=== PATIENT | female | born 1985 ===

== ENCOUNTER 2016-10-22 16:53 | Emergency (ER) | payer MEDICAID ==
[2016-10-22 17:47] LABS: RBC URINE 17 /hpf (0-3); URINE BACTERIA FEW (<OCC); URINE BILIRUBIN NEGATIVE (NEGATIVE); URINE BLOOD NEGATIVE (NEGATIVE); URINE COLOR Yellow (YELLOW); URINE GLUCOSE (UA) NORMAL (Normal); URINE KETONE TRACE mg/dL (NEGATIVE); URINE LEUKOCYTE ESTERASE 2+ Leu/uL (Negative); URINE PROTEIN 1+ mg/dL (NEGATIVE); URINE UROBILINOGEN NORMAL mg/dL (0.2-1.0); WBC URINE 99 /hpf (0-5)
[2016-10-22 18:16] VITALS: BP 106/60; PULSE 74; RESP 18; TEMP 97.9; O2SAT 99
--- NOTE | 2016-10-22 18:34 | C.PDOC ---
History Of Present Illness The patient, a 31 y/o female whose PMHx includes multiple UTIs, presents to the ED for evaluation of dysuria as well as increased urinary frequency and urgency which began around 3 days ago. Patient requests Rx for diflucan, stating she usually gets yeast infections after antibiotics use. Patient denies nausea, vomiting, vaginal discharge/bleeding, or any recent antibiotic use. Chief Complaint (Nursing): Female Genitourinary History Per: Patient History/Exam Limitations: no limitations Onset/Duration Of Symptoms: Days (3) Current Symptoms Are (Timing): Still Present Quality Of Discomfort: "Pain" Associated Symptoms: Urinary Symptoms (dysuria, increased urinary frequency and urgency ). denies: Nausea, Vomiting Additional History Per: Patient Abnormal Vaginal Bleeding: No Past Medical History Reviewed: Historical Data, Nursing Documentation, Vital Signs Vital Signs: Last Vital Signs Temp 97.9 F 10/22/16 18:16 Pulse 74 10/22/16 18:16 Resp 18 10/22/16 18:16 BP 106/60 10/22/16 18:16 Pulse Ox 99 10/22/16 18:36 - Medical History PMH: No Chronic Diseases - [facility] Procedures TETANUS TOXOID ADMINIST (12/22/12) Family History: States: Unknown Family Hx - Social History Hx Tobacco Use: No Hx Alcohol Use: No Hx Substance Use: No - Immunization History Hx Tetanus Toxoid Vaccination: No Hx Influenza Vaccination: No Hx Pneumococcal Vaccination: No Review Of Systems Except As Marked, All Systems Reviewed And Found Negative. Gastrointestinal: Negative for: Nausea, Vomiting Genitourinary: Positive for: Dysuria, Frequency, Other (+urinary urgency ). Negative for: Vaginal Discharge, Vaginal Bleeding Physical Exam - Physical Exam Appears: Non-toxic, No Acute Distress Skin: Normal Color, Warm, Dry Head: Atraumatic, Normacephalic Eye(s): bilateral: Normal Inspection Oral Mucosa: Moist Neck: Normal ROM, Supple Chest: Symmetrical, No Deformity, No Tenderness Cardiovascular: Rhythm Regular, No Murmur Respiratory: Normal Breath Sounds, No Rales, No Rhonchi, No Wheezing Gastrointestinal/Abdominal: Soft, No Tenderness, No Guarding, No Rebound Back: Normal Inspection, No Vertebral Tenderness, No Paraspinal Tenderness Extremity: Normal ROM, Capillary Refill (less than 2 seconds ) Neurological/Psych: Oriented x3, Normal Speech, Normal Cognition Gait: Steady ED Course And Treatment O2 Sat by Pulse Oximetry: 99 (on RA) Pulse Ox Interpretation: Normal Progress Note: Labs ordered and reviewed. Patient received Cipro PO and Toradol IM. Disposition - Disposition Referrals: Wai Coronado, [Non-Staff] - Disposition: HOME/ ROUTINE Disposition Time: 18:00 Condition: GOOD Additional Instructions: Thank you for letting us take care of you today. Your provider was Dr. Alejandra. You were treated for a urinary tract infection. The emergency medical care you received today was directed at your acute symptoms. If you were prescribed any medication, please fill it and take as directed. It may take several days for your symptoms to resolve. Return to the Emergency Department if your symptoms worsen, do not improve, or if you have any other problems. Please contact your doctor or call one of the physicians/clinics you have been referred to that are listed on the Patient Visit Information form that is included in your discharge packet. Bring any paperwork you were given at discharge with you along with any medications you are taking to your follow up visit. Our treatment cannot replace ongoing medical care by a primary care provider (PCP) outside of the emergency department. Thank you for allowing the [facility] team to be part of your care today. Follow up with your primary doctor this week for re-evaluation. Prescriptions: Ciprofloxacin [Cipro] 500 mg PO BID #20 tab Fluconazole [Diflucan] 150 mg PO ONCE #1 tab Ibuprofen [Motrin] 600 mg PO Q6 PRN #20 tab PRN Reason: Pain, Moderate (4-7) Phenazopyridine [Phenazopyridine HCl] 200 mg PO TID #6 tab Instructions: Urinary Tract Infection in Women (ED) - Clinical Impression Clinical Impression: Acute urinary tract infection - Scribe Statement The provider has reviewed the documentation as recorded by the Scribe (Emelina Ramires) Provider Attestation: All medical record entries made by the Scribe were at my direction and personally dictated by me. I have reviewed the chart and agree that the record accurately reflects my personal performance of the history, physical exam, medical decision making, and the department course for this patient. I have also personally directed, reviewed, and agree with the discharge instructions and disposition.
== END 2016-10-22 18:23 | disposition home or self-care (01) ==
LOC: C.ER 16:53
DX: N39.0 Urinary tract infection, site not specified (principal)
CPT/HCPCS: 81001; 84703; 96372; 99284; J1885

== ENCOUNTER 2017-01-25 10:45 | Emergency (ER) | payer MEDICAID ==
[2017-01-25 10:51] VITALS: RESP 20; TEMP 98.5; O2SAT 100
[2017-01-25 12:07] LABS: BASO % 0.4 % (0.0-2.0); EOS % 0.1 % (0.0-4.0); HEMOGLOBIN 12.7 g/dL (11.0-16.0); LYMPH % 11.9 % (20.0-40.0); MEAN CORPUSCULAR HEMOGLOBIN 31.7 pg (27.0-31.0); MEAN CORPUSCULAR HGB CONC 33.4 g/dL (33.0-37.0); MEAN PLATELET VOLUME 9.5 fL (7.2-11.7); MONO # 0.6 K/uL (0.0-0.8); MONO % 7.1 % (0.0-10.0); NEUT # 6.9 K/uL (1.8-7.0); NEUT % 80.5 % (50.0-75.0); RBC 4.02 Mil/uL (3.80-5.20); RED CELL DISTRIBUTION WIDTH 12.1 % (11.5-14.5); WHITE BLOOD COUNT 8.6 K/uL (4.8-10.8)
[2017-01-25 12:18] LABS: ALB/GLOB RATIO 1.1 (1.0-2.1); ALT/SGPT 21 U/L (9-52); AST/SGOT 34 U/L (14-36); BLOOD UREA NITROGEN 9 mg/dL (7-17); GFR AFRICAN-AMERICAN > 60; GFR NON-AFRICAN AMERICAN > 60
[2017-01-25 12:19] LABS: CALCIUM 8.5 mg/dl (8.6-10.4)
[2017-01-25] MEDS ORDERED: Sodium Chloride 0.9% 1,000 ML IV ONE (13:09)
[2017-01-25] MEDS ORDERED: Sodium Chloride 0.9% 1,000 ML ONE (13:52)
[2017-01-25 14:12] LABS: SQUAMOUS EPITHIAL 12 /hpf (0-5); URINE BACTERIA FEW (<OCC); URINE BILIRUBIN NEGATIVE (NEGATIVE); URINE BLOOD 2+ (NEGATIVE); URINE CLARITY Hazy (Clear); URINE COLOR Yellow (YELLOW); URINE GLUCOSE (UA) NORMAL (Normal); URINE LEUKOCYTE ESTERASE NEG Leu/uL (Negative); URINE NITRATE NEGATIVE (NEGATIVE); URINE PROTEIN 1+ mg/dL (NEGATIVE); URINE UROBILINOGEN NORMAL mg/dL (0.2-1.0)
--- NOTE | 2017-01-25 14:19 | C.PDOC ---
History Of Present Illness 31-year-old female, presents to the emergency department with complaints of two- day duration of non-bloody diarrhea, that is associated with nausea and abdominal cramping. patient reports that she was unable to tolerate fluids yesterday and was feeling generalized weakness, prompting her visit. Notes associated questionable fever and chills. Time Seen by Provider: 01/25/17 12:09 Chief Complaint (Nursing): Fever History Per: Patient History/Exam Limitations: no limitations Onset/Duration Of Symptoms: Days Current Symptoms Are (Timing): Still Present Severity: Moderate Past Medical History Reviewed: Historical Data, Nursing Documentation, Vital Signs Vital Signs: Last Vital Signs Temp 98.5 F 01/25/17 14:50 Pulse 90 01/25/17 14:50 Resp 20 01/25/17 14:50 BP 103/67 01/25/17 14:50 Pulse Ox 100 01/25/17 14:51 - [facility] Procedures TETANUS TOXOID ADMINIST (12/22/12) Family History: States: No Known Family Hx - Social History Hx Tobacco Use: No Hx Alcohol Use: Yes Hx Substance Use: No - Immunization History Hx Tetanus Toxoid Vaccination: No Hx Influenza Vaccination: No Hx Pneumococcal Vaccination: No Review Of Systems Except As Marked, All Systems Reviewed And Found Negative. Constitutional: Positive for: Fever, Chills Cardiovascular: Negative for: Chest Pain Respiratory: Negative for: Shortness of Breath Gastrointestinal: Positive for: Diarrhea. Negative for: Nausea, Vomiting, Hematochezia, Hematemesis Musculoskeletal: Negative for: Back Pain Physical Exam - Physical Exam Appears: Non-toxic, No Acute Distress Skin: Warm, Dry, No Rash Head: Atraumatic, Normacephalic Eye(s): bilateral: Normal Inspection, PERRL, EOMI Nose: Normal Oral Mucosa: Moist Lips: Normal Appearing Neck: Normal ROM Cardiovascular: Rhythm Regular, No Murmur Respiratory: Normal Breath Sounds, No Accessory Muscle Use Gastrointestinal/Abdominal: Soft, No Tenderness Extremity: Normal ROM Neurological/Psych: Oriented x3, Normal Speech ED Course And Treatment - Laboratory Results Result Diagrams: 01/25/17 12:02 01/25/17 12:02 O2 Sat by Pulse Oximetry: 100 (on RA) Pulse Ox Interpretation: Normal Medical Decision Making Medical Decision Making: On re-exam, the patient reports improvement of symptoms. Ambulatory in the ED with steady gait. Lungs are CTA, heart is RRR, abdomen is soft, non-tender and tolerating PO well. Follow up with the medical doctor within 1-2 days. Return if worsened. Disposition - Disposition Referrals: Eve Lind MD [Non-Staff] - Disposition: HOME/ ROUTINE Disposition Time: 14:16 Condition: GOOD Additional Instructions: Follow up with the medical doctor within 1-2 days. Return if worsened. Prescriptions: Ibuprofen [Motrin] 1 tab PO TID PRN #30 tab PRN Reason: Pain Ondansetron ODT [Zofran ODT] 1 odt PO BID PRN #6 odt PRN Reason: Nausea/Vomiting Instructions: Acute Diarrhea (ED) Forms: Work Excuse - Clinical Impression Clinical Impression: Diarrhea - PA / RECREATIONAL ASSISTANT / Resident Statement MD/DO has reviewed & agrees with the documentation as recorded. - Scribe Statement The provider has reviewed the documentation as recorded by the Scribe (Bairon De Jesus) All medical record entries made by the Scribe were at my direction and personally dictated by me. I have reviewed the chart and agree that the record accurately reflects my personal performance of the history, physical exam, medical decision making, and the department course for this patient. I have also personally directed, reviewed, and agree with the discharge instructions and disposition.
[2017-01-25 14:50] VITALS: BP 103/67; PULSE 90
== END 2017-01-25 14:50 | disposition home or self-care (01) ==
LOC: C.ER 10:45
DX: R19.7 Diarrhea, unspecified (principal)
CPT/HCPCS: 80053; 81001; 85025; 96374; 96375; 99285; J1885; J2405; J7040

== ENCOUNTER 2017-01-30 18:29 | Emergency (ER) | payer MEDICAID ==
[2017-01-30 18:51] VITALS: BMI 19.4
[2017-01-30 18:53] VITALS: TEMP 97.3
[2017-01-30 20:08] LABS: SQUAMOUS EPITHIAL 12 /hpf (0-5); URINE BACTERIA FEW (<OCC); URINE BILIRUBIN NEGATIVE (NEGATIVE); URINE BLOOD 1+ (NEGATIVE); URINE CLARITY Hazy (Clear); URINE COLOR Yellow (YELLOW); URINE GLUCOSE (UA) NORMAL (Normal); URINE LEUKOCYTE ESTERASE 3+ Leu/uL (Negative); URINE NITRATE NEGATIVE (NEGATIVE); URINE PROTEIN 1+ mg/dL (NEGATIVE); URINE UROBILINOGEN NORMAL mg/dL (0.2-1.0)
[2017-01-30 20:09] LABS: HCG,QUALITATIVE URINE NEGATIVE (NEGATIVE)
--- NOTE | 2017-01-30 20:10 | C.PDOC ---
History Of Present Illness 31 y/o female hx of frequent UTIs presents to the ED with complaints of dysuria , frequency, and hesitancy. Last UTI was last month. Denies abdominal pain, back pain, fever, vomiting or any other complaints. Time Seen by Provider: 01/30/17 19:30 Chief Complaint (Nursing): Female Genitourinary History Per: Patient History/Exam Limitations: no limitations Onset/Duration Of Symptoms: Days Current Symptoms Are (Timing): Still Present Severity: Moderate Recent travel outside of the [place]: No Past Medical History Reviewed: Historical Data, Nursing Documentation, Vital Signs Vital Signs: Last Vital Signs Temp 97.3 F L 01/30/17 18:52 Pulse 86 01/30/17 18:52 Resp 17 01/30/17 18:52 BP 100/63 01/30/17 18:52 Pulse Ox 100 01/30/17 20:45 - [facility] Procedures TETANUS TOXOID ADMINIST (12/22/12) Family History: States: Unknown Family Hx - Social History Hx Tobacco Use: No Hx Alcohol Use: Yes Hx Substance Use: No - Immunization History Hx Tetanus Toxoid Vaccination: No Hx Influenza Vaccination: No Hx Pneumococcal Vaccination: No Review Of Systems Except As Marked, All Systems Reviewed And Found Negative. Constitutional: Negative for: Fever, Chills Gastrointestinal: Negative for: Vomiting, Abdominal Pain Genitourinary: Positive for: Dysuria, Frequency, Other (hesitancy) Musculoskeletal: Negative for: Back Pain Physical Exam - Physical Exam Appears: Non-toxic, No Acute Distress Skin: Warm, Dry, No Rash Head: Atraumatic, Normacephalic Neck: Normal, Normal ROM, Supple Chest: Symmetrical Cardiovascular: Rhythm Regular, No Murmur Respiratory: Normal Breath Sounds, No Rales, No Rhonchi, No Wheezing Gastrointestinal/Abdominal: Normal Exam, Soft, No Tenderness Back: No CVA Tenderness Neurological/Psych: Oriented x3, Normal Speech ED Course And Treatment O2 Sat by Pulse Oximetry: 100 (room air) Pulse Ox Interpretation: Normal Progress Note: Plan: UA, pyridium. UA reviewed - indicates UTI, macrobid PO given and pt will be follow up with PCP Reevaluation Time: 20:42 Reassessment Condition: Improved Disposition Counseled Patient/Family Regarding: Diagnosis - Disposition Disposition: HOME/ ROUTINE Disposition Time: 20:42 Condition: STABLE Additional Instructions: INcrease PO fluids Take meds as prescribed Return to ER if worse Prescriptions: Nitrofurantoin Macrocrystals [Macrobid] 1 cap PO BID #14 cap Phenazopyridine HCl [Pyridium] 200 mg PO TID #5 tab Instructions: Urinary Tract Infection in Women (ED) - Clinical Impression Clinical Impression: UTI (urinary tract infection) - PA / RESOURCE AGENT / Resident Statement MD/DO has reviewed & agrees with the documentation as recorded. - Scribe Statement The provider has reviewed the documentation as recorded by the Scribyasmine Capellan All medical record entries made by the Kristen were at my direction and personally dictated by me. I have reviewed the chart and agree that the record accurately reflects my personal performance of the history, physical exam, medical decision making, and the department course for this patient. I have also personally directed, reviewed, and agree with the discharge instructions and disposition.
[2017-01-30 21:03] VITALS: BP 124/75; PULSE 78; RESP 18
[2017-01-31 02:27] VITALS: O2SAT 100
== END 2017-01-30 21:03 | disposition home or self-care (01) ==
LOC: C.ER 18:29
DX: N39.0 Urinary tract infection, site not specified (principal)

== ENCOUNTER 2017-02-08 22:26 | Emergency (ER) | payer MEDICAID ==
[2017-02-08 22:26] VITALS: BMI 19.4
[2017-02-08 22:41] VITALS: BP 115/77; PULSE 105; RESP 16; TEMP 98.8; O2SAT 97
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
== END 2017-02-09 00:04 | disposition home or self-care (01) ==
LOC: C.ER 22:26
DX: S50.02XA Contusion of left elbow, initial encounter (principal); S50.11XA Contusion of right forearm, initial encounter; S80.12XA Contusion of left lower leg, initial encounter; Y04.2XXA Assault by strike against or bumped into by another person, initial encounter; Y92.009 Unspecified place in unspecified non-institutional (private) residence as the place of occurrence of the external cause

== ENCOUNTER 2017-03-22 13:09 | Emergency (ER) | payer OTHER, MEDICAID ==
[2017-03-22 13:10] VITALS: BMI 19.4
[2017-03-22 13:25] VITALS: BP 100/64; PULSE 80; RESP 18; TEMP 98; O2SAT 100
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
== END 2017-03-22 13:56 | disposition home or self-care (01) ==
LOC: C.ER 13:09
DX: R51 Headache (principal)

== ENCOUNTER 2017-04-07 12:41 | Emergency (ER) | payer MEDICAID, OTHER ==
[2017-04-07 12:42] VITALS: BMI 19.4
[2017-04-07] MEDS ORDERED: Sodium Chloride 0.9% 1,000 ML IV ONE (13:33)
[2017-04-07 14:06] LABS: BASO % 0.5 % (0.0-2.0); EOS # 0.1 K/uL (0.0-0.7); EOS % 1.1 % (0.0-4.0); HEMATOCRIT 35.4 % (34.0-47.0); LYMPH # 2.2 K/uL (1.0-4.3); MEAN CELL VOLUME 95.6 fL (81.0-99.0); MEAN CORPUSCULAR HEMOGLOBIN 32.9 pg (27.0-31.0); MEAN CORPUSCULAR HGB CONC 34.4 g/dL (33.0-37.0); MEAN PLATELET VOLUME 8.3 fL (7.2-11.7); MONO # 0.6 K/uL (0.0-0.8); MONO % 8.1 % (0.0-10.0); RED CELL DISTRIBUTION WIDTH 11.9 % (11.5-14.5); WHITE BLOOD COUNT 7.9 K/uL (4.8-10.8)
[2017-04-07 14:17] LABS: ALB/GLOB RATIO 1.3 (1.0-2.1); ALKALINE PHOSPHATASE 47 U/L (38-126); ALT/SGPT 31 U/L (9-52); AST/SGOT 20 U/L (14-36); BILIRUBIN,TOTAL 0.5 mg/dL (0.2-1.3); BLOOD UREA NITROGEN 12 mg/dL (7-17); CALCIUM 9.3 mg/dl (8.6-10.4); CARBON DIOXIDE 25 mmol/L (22-30); CHLORIDE 103 mmol/L (98-107); GFR AFRICAN-AMERICAN > 60; GLUCOSE,RANDOM 73 mg/dL (65-105); SODIUM 141 mmol/L (132-148); TOTAL PROTEIN 7.2 g/dL (6.3-8.3)
--- NOTE | 2017-04-07 14:31 | C.PDOC ---
History Of Present Illness 32 y/o female presents to ED with complaints of vaginal spotting noticed earlier today. Patient states she wiped herself and noticed blood on tissue. At ED patient is not actively bleeding. Patient states she had cramping and [id number] pain but resolved with associated clear and white discharge. Patient denies fever, chills, back pain, urinary symptoms or any other complaints at this time. Time Seen by Provider: 04/07/17 13:32 Chief Complaint (Nursing): Female Genitourinary History Per: Patient History/Exam Limitations: no limitations Onset/Duration Of Symptoms: Days Current Symptoms Are (Timing): Still Present Past Medical History Reviewed: Historical Data, Nursing Documentation, Vital Signs Vital Signs: Last Vital Signs Temp 98.2 F 04/07/17 16:29 Pulse 86 04/07/17 16:29 Resp 20 04/07/17 16:29 BP 141/83 04/07/17 16:29 Pulse Ox 100 04/07/17 18:59 - [facility] Procedures TETANUS TOXOID ADMINIST (12/22/12) Family History: States: Unknown Family Hx - Social History Hx Tobacco Use: No Hx Alcohol Use: No Hx Substance Use: No - Immunization History Hx Tetanus Toxoid Vaccination: Yes Hx Influenza Vaccination: Yes Hx Pneumococcal Vaccination: No Review Of Systems Except As Marked, All Systems Reviewed And Found Negative. Genitourinary: Positive for: Vaginal Bleeding Physical Exam - Physical Exam Appears: Non-toxic, No Acute Distress Skin: Normal Color, Warm, Dry, No Rash Head: Atraumatic, Normacephalic Eye(s): bilateral: Normal Inspection Oral Mucosa: Moist Neck: Normal ROM, Supple Chest: Symmetrical Cardiovascular: Rhythm Regular, No Murmur Respiratory: Normal Breath Sounds, No Rales, No Rhonchi, No Wheezing Gastrointestinal/Abdominal: Tenderness (suprapubic), No Guarding, No Rebound Neurological/Psych: Oriented x3 ED Course And Treatment - Laboratory Results Result Diagrams: 04/07/17 14:02 04/07/17 14:02 O2 Sat by Pulse Oximetry: 100 (RA) Pulse Ox Interpretation: Normal Medical Decision Making Medical Decision Making: r/o ectopic vs micarriage Plan: * UA * Blood work * US abdomen * * case discussed in detail with dr smith. requests outpt f/u with pts obgyn. discussed results in detail with patient. agrees to see obgyn as outpt. return precautions advised. Disposition - Disposition Referrals: Martin Smith MD [Staff Provider] - Disposition: HOME/ ROUTINE Disposition Time: 04:00 Condition: STABLE Additional Instructions: please follow up with your doctor/barge hand. return to er with worsening symptoms or concerns. Instructions: Spontaneous Miscarriage (ED) Forms: [employer] (Dutch) - Clinical Impression Clinical Impression: Miscarriage - Scribe Statement The provider has reviewed the documentation as recorded by the Anjelibyasmine Sanchez All medical record entries made by the Anjelibyasmine were at my direction and personally dictated by me. I have reviewed the chart and agree that the record accurately reflects my personal performance of the history, physical exam, medical decision making, and the department course for this patient. I have also personally directed, reviewed, and agree with the discharge instructions and disposition.
--- NOTE | 2017-04-07 14:57 | US ---
PROCEDURE: OB Pelvic Ultrasound HISTORY: abd pain and , lesser 0 appears reported 01/22/2017 suggesting an estimated gestational age of 10 weeks 5 days. COMPARISON: None available. FINDINGS: UTERUS: Gestational sac: A single delete intrauterine gestation identified with a gestational sac . Yolk sac is poorly characterized. There is no detectable heartbeat at this time. Mean coronal the lump length measurement is 0.84 cm corresponds to the estimated gestational age 6 weeks 5 days which is discordant with 10 week 5 day estimated gestational age based on LMP. Clinically correlate for possible demise. Mean gestational sac measurement is 1.89 cm Heart rate: None detected. . age (Ultrasound estimated): 6 weeks 5 days. Shena-gestational hemorrhage: None clearly evident. Date of delivery (Ultrasound estimated) : 11/27/2017 Uterus measures 9.1 x 5.2 x 6.8 cm. Enlarged without obvious myometrial mass. CERVIX: Long and closed. No cervical abnormality seen. RIGHT OVARY: Measures 3.0 x 1.5 x 2.6 cm. No mass lesion. Normal flow. LEFT OVARY: Measures 3.4 x 2.0 x 2.5 cm. No solid mass. Normal flow. FREE FLUID: None. OTHER FINDINGS: None. IMPRESSION: A single intrauterine gestation identified with nonfocal decidual reaction but a poorly defined yolk sac and no detectable cardiac activity. This suggests demise. Clinical correlation and possible spine follow-up are advised. Please see discussion above.
[2017-04-07 16:30] VITALS: BP 141/83; PULSE 86; RESP 20; TEMP 98.2
[2017-04-07 18:59] VITALS: O2SAT 100
== END 2017-04-07 16:40 | disposition home or self-care (01) ==
LOC: C.ER 12:41
DX: O03.9 Complete or unspecified spontaneous abortion without complication (principal)

== ENCOUNTER 2017-06-06 18:55 | Emergency (ER) | payer SELFPAY ==
[2017-06-06 18:56] VITALS: BMI 19.4
[2017-06-06 19:47] LABS: RBC URINE 6 /hpf (0-3); URINE BACTERIA FEW (<OCC); URINE BILIRUBIN NEGATIVE (NEGATIVE); URINE BLOOD NEGATIVE (NEGATIVE); URINE GLUCOSE (UA) NORMAL (Normal); URINE KETONE NEGATIVE (NEGATIVE); URINE LEUKOCYTE ESTERASE 2+ Leu/uL (Negative); URINE PROTEIN 1+ mg/dL (NEGATIVE); WBC URINE 94 /hpf (0-5)
[2017-06-06 19:49] LABS: URINE COLOR YELLOW (YELLOW)
--- NOTE | 2017-06-06 19:54 | C.PDOC ---
Chief Complaint (Nursing): Female Genitourinary Past Medical History Vital Signs: Last Vital Signs Temp 97.7 F 06/06/17 19:20 Pulse 89 06/06/17 19:20 Resp 16 06/06/17 19:20 BP 116/67 06/06/17 19:20 Pulse Ox 98 06/06/17 19:20 - [facility] Procedures TETANUS TOXOID ADMINIST (12/22/12) Family History: States: Unknown Family Hx - Social History Hx Tobacco Use: No Hx Alcohol Use: No Hx Substance Use: No - Immunization History Hx Tetanus Toxoid Vaccination: Yes Hx Influenza Vaccination: Yes Hx Pneumococcal Vaccination: No ED Course And Treatment O2 Sat by Pulse Oximetry: 98 Disposition - Disposition
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
[2017-06-06 20:27] LABS: BASO # 0.1 K/uL (0.0-0.2); BASO % 0.5 % (0.0-2.0); EOS # 0.1 K/uL (0.0-0.7); EOS % 0.9 % (0.0-4.0); HEMATOCRIT 38.1 % (34.0-47.0); LYMPH # 2.5 K/uL (1.0-4.3); LYMPH % 20.1 % (20.0-40.0); MEAN CORPUSCULAR HEMOGLOBIN 32.1 pg (27.0-31.0); MEAN CORPUSCULAR HGB CONC 33.5 g/dL (33.0-37.0); MEAN PLATELET VOLUME 8.9 fL (7.2-11.7); MONO # 0.9 K/uL (0.0-0.8); RED CELL DISTRIBUTION WIDTH 12.2 % (11.5-14.5); WHITE BLOOD COUNT 12.5 K/uL (4.8-10.8)
[2017-06-06 20:52] LABS: ALB/GLOB RATIO 1.4 (1.0-2.1); ALKALINE PHOSPHATASE 70 U/L (38-126); ALT/SGPT 30 U/L (9-52); AST/SGOT 27 U/L (14-36); BILIRUBIN,TOTAL 0.6 mg/dL (0.2-1.3); BLOOD UREA NITROGEN 17 mg/dL (7-17); CALCIUM 8.8 mg/dl (8.6-10.4); CARBON DIOXIDE 25 mmol/L (22-30); CHLORIDE 99 mmol/L (98-107); GFR AFRICAN-AMERICAN > 60; GLUCOSE,RANDOM 93 mg/dL (65-105); POTASSIUM 3.5 mmol/L (3.6-5.2); SODIUM 135 mmol/L (132-148); TOTAL PROTEIN 7.3 g/dL (6.3-8.3)
[2017-06-06 22:21] VITALS: PULSE 67; RESP 18; TEMP 97.8
--- NOTE | 2017-06-06 22:34 | US ---
EXAM: US , Transabdominal and Transvaginal CLINICAL HISTORY: 32 years old, female; Signs and symptoms; Lmp or gestational age (in weeks): Unknown; Other: Vaginal bleed and ; Additional info: Vag bleed and TECHNIQUE: Real-time transabdominal and transvaginal obstetrical ultrasound of the maternal pelvis and a first trimester with image documentation. Transvaginal imaging was used for better evaluation of the fetus and adnexa. COMPARISON: No relevant prior studies available. FINDINGS: Gestation: A twin gestation is identified. Mean gestational sac size of twin A measures 7.9 mm, too small for dates. Mean gestational sac size of twin B measures 6.1 mm, too small for dates. No pole is detected, no yolk sac is noted. Implantation hemorrhage is present, along the posterior body of the uterus measuring 2.0 cm in greatest dimension. Placenta/amniotic fluid: Cannot be adequately evaluated due to the early gestational age. Uterus/cervix: Cervix measures 2.4 cm, and is closed. The uterus is retroverted. Ovaries: Unremarkable in echogenicity and size. The right ovary measures 3.1 x 1.8 x 3.2 cm. The left ovary measures 3.0 x 2.3 x 3.1 cm. No mass. Free fluid: No free fluid. IMPRESSION: Twin gestation, too small for dates. Implantation hemorrhage measuring 2 cm in greatest dimension.
[2017-06-06 23:38] VITALS: BP 102/66
[2017-06-07 02:31] VITALS: O2SAT 98
== END 2017-06-06 23:38 | disposition home or self-care (01) ==
LOC: C.ER 18:55
DX: O20.0 Threatened abortion (principal); O23.41 Unspecified infection of urinary tract in pregnancy, first trimester; Z3A.00 Weeks of gestation of pregnancy not specified

== ENCOUNTER 2017-07-31 18:45 | Emergency (ER) | payer OTHER ==
[2017-07-31 18:45] VITALS: BMI 19.4
[2017-07-31 18:53] VITALS: BP 112/69; PULSE 105; RESP 18; TEMP 98.4; O2SAT 99
[2017-07-31] MEDS ORDERED: Lidocaine 5% Patch TD STA (19:27)
[2017-07-31] MEDS ORDERED: Naproxen 550 mg Tab PO STA (19:27)
[2017-07-31] MEDS ORDERED: Naproxen 550 mg Tab PO ONE (19:33)
[2017-07-31] MEDS ORDERED: Lidocaine 5% Patch TD ONE (19:33)
--- NOTE | 2017-07-31 20:56 | C.PDOC ---
History Of Present Illness 32 yr old female presents to the ER stating yesterday while standing on a chair , the chair slipped out from under her and she fell onto her lower back. States she is able to walk but has pain and the pain is made worse when she bends down. Denies chest pain, SOB, abdominal pain, dysuria, incontinence, hematuria, weakness or numbness. Time Seen by Provider: 07/31/17 19:06 Chief Complaint (Nursing): Back Pain History Per: Patient History/Exam Limitations: no limitations Onset/Duration Of Symptoms: Days (1) Current Symptoms Are (Timing): Still Present Past Medical History Reviewed: Historical Data, Nursing Documentation, Vital Signs Vital Signs: Last Vital Signs Temp 98.4 F 07/31/17 18:51 Pulse 105 H 07/31/17 18:51 Resp 18 07/31/17 18:51 BP 112/69 07/31/17 18:51 Pulse Ox 99 07/31/17 21:00 - [facility] Procedures TETANUS TOXOID ADMINIST (12/22/12) Family History: States: No Known Family Hx - Social History Hx Tobacco Use: No Hx Alcohol Use: Yes Hx Substance Use: No - Immunization History Hx Tetanus Toxoid Vaccination: Yes Hx Influenza Vaccination: Yes Hx Pneumococcal Vaccination: No Review Of Systems Except As Marked, All Systems Reviewed And Found Negative. Cardiovascular: Negative for: Chest Pain Respiratory: Negative for: Shortness of Breath Gastrointestinal: Negative for: Abdominal Pain Genitourinary: Negative for: Dysuria, Incontinence, Hematuria Musculoskeletal: Positive for: Back Pain (lower back pain) Neurological: Negative for: Weakness, Numbness Physical Exam - Physical Exam Appears: Non-toxic, No Acute Distress Skin: Warm, Dry, No Rash Head: Atraumatic, Normacephalic Eye(s): bilateral: Normal Inspection, PERRL, EOMI Oral Mucosa: Moist Neck: Normal, Normal ROM, No Midline Cervical Tenderness, No Paracervical Tenderness, Supple Chest: Symmetrical, No Tenderness Cardiovascular: Rhythm Regular, No Friction Rub, No Murmur Respiratory: Normal Breath Sounds, No Rales, No Rhonchi, No Stridor, No Wheezing Gastrointestinal/Abdominal: Normal Exam, Soft, No Tenderness, No Guarding, No Rebound Back: No Vertebral Tenderness, Other ((+) moderate left sided paralumbar tenderness) Extremity: Normal ROM, No Tenderness, No Swelling Pulses: Left Dorsalis Pedis: Normal, Right Dorsalis Pedis: Normal Neurological/Psych: Oriented x3, Normal Speech, Normal Motor, Normal Sensation Gait: Steady ED Course And Treatment O2 Sat by Pulse Oximetry: 99 (RA) Pulse Ox Interpretation: Normal - Other Rad X-Ray - Lumbar Spine X-Ray: Interpreted by Me, Viewed By Me Interpretation: (-) fracture, (-) dislocation Medical Decision Making Medical Decision Making: PLAN: * X-Ray - Lumbar Spine * POC * Lidoderm TD * Naproxen PO On re-exam, the patient reports improvement of symptoms. Lungs are CTA, heart is RRR, abdomen is soft, non-tender and the patient is tolerating PO well. Ambulatory in the ED with steady gait. Follow up with the medical doctor/clinic within 1-2 days. Return if worsened. Disposition Counseled Patient/Family Regarding: Studies Performed, Diagnosis, Need For Followup, Rx Given - Disposition Referrals: Melo Franks MD [Non-Staff] - Disposition: HOME/ ROUTINE Disposition Time: 21:17 Condition: GOOD Additional Instructions: Follow up with the medical doctor/clinic within 1-2 days. Return if worsened. 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 - Scribe Statement The provider has reviewed the documentation as recorded by the Scribe Joanna Brady All medical record entries made by the Scribe were at my direction and personally dictated by me. I have reviewed the chart and agree that the record accurately reflects my personal performance of the history, physical exam, medical decision making, and the department course for this patient. I have also personally directed, reviewed, and agree with the discharge instructions and disposition.
--- NOTE | 2017-08-01 09:49 | RAD ---
PROCEDURE: Radiographs of the Lumbar Spine. HISTORY: back pain, fall injury COMPARISON: No prior. FINDINGS: BONES: Normal alignment. No listhesis. No fracture. DISC SPACES: Unremarkable. OTHER FINDINGS: None. IMPRESSION: Unremarkable radiographs of the lumbar spine.
== END 2017-07-31 21:38 | disposition home or self-care (01) ==
LOC: C.ER 18:45
DX: S30.0XXA Contusion of lower back and pelvis, initial encounter (principal); W07.XXXA Fall from chair, initial encounter; Y92.9 Unspecified place or not applicable

== ENCOUNTER 2018-01-03 19:41 | Emergency (ER) | payer OTHER ==
[2018-01-03 19:42] VITALS: BMI 19.4
[2018-01-03 20:13] VITALS: BP 125/83; PULSE 95; RESP 20; TEMP 99.2; O2SAT 99
--- NOTE | 2018-01-03 20:17 | C.PDOC ---
History Of Present Illness 32 yo female come in for evaluation of gradual onset of Left eye redness, eye light sensitivity, discomfort since yesterday. Pt admits, wear contacts, removed yesterday. Pt sts, "stared after slept in contacts". Otherwise, pt denies fever, chills, recent illness, headache, dizziness, visual changes, blurry vision, FB sensation, double vision, sore throat, cough, CP, SOB, denies any other active complaints. Ambulate to Ed for evaluation, not in any apparent distress. Time Seen by Provider: 01/03/18 19:56 Chief Complaint (Nursing): ENT Problem History Per: Patient Past Medical History Reviewed: Historical Data, Nursing Documentation, Vital Signs Vital Signs: Last Vital Signs Temp 99.2 F 01/03/18 20:09 Pulse 95 H 01/03/18 20:09 Resp 20 01/03/18 20:09 BP 125/83 01/03/18 20:09 Pulse Ox 99 01/03/18 20:09 - [facility] Procedures TETANUS TOXOID ADMINIST (12/22/12) Family History: States: Unknown Family Hx - Social History Hx Tobacco Use: No Hx Alcohol Use: Yes Hx Substance Use: No - Immunization History Hx Tetanus Toxoid Vaccination: Yes Hx Influenza Vaccination: Yes Hx Pneumococcal Vaccination: No Review Of Systems Except As Marked, All Systems Reviewed And Found Negative. Constitutional: Negative for: Fever, Chills Eyes: Positive for: Redness. Negative for: Vision Change, Eyelid Inflammation ENT: Negative for: Ear Discharge, Throat Pain, Throat Swelling Cardiovascular: Negative for: Chest Pain, Palpitations, Edema Respiratory: Negative for: Cough, Shortness of Breath, Wheezing Gastrointestinal: Negative for: Nausea, Vomiting Genitourinary: Negative for: Dysuria Musculoskeletal: Negative for: Neck Pain, Back Pain Skin: Negative for: Rash Neurological: Negative for: Weakness, Numbness, Altered Mental Status, Headache , Dizziness Physical Exam - Physical Exam Appears: Well, Non-toxic, No Acute Distress Skin: Normal Color, Warm, No Rash Head: Normacephalic Eye(s): bilateral: PERRL, EOMI (no pain or limitation on extraocular movement), left: Other (mid conjunctival injection. Fluoresciene uptake at 6 o'clock. No corneal FB. No periorbital edema or erythema.) Ear(s): Bilateral: Normal Nose: No Flaring, No Discharge Oral Mucosa: Moist, No Drooling Tongue: Normal Appearing Lips: Normal Appearing Throat: No Erythema, No Drooling Neck: Supple Lymphatic: No Adenopathy (cervical) Respiratory: No Stridor, No Wheezing Extremity: Normal ROM, No Deformity, No Swelling Neurological/Psych: Oriented x3, Normal Speech ED Course And Treatment O2 Sat by Pulse Oximetry: 99 Pulse Ox Interpretation: Normal Progress Note: On re-eval, pt is afebrile, hemodynamicaly stable. non-toxic. PulsEOx 99% RA. VA: R 20/20, L20/25, B/L 20/20. Left eye: exam c/w corneal abrasion. No pain or limitation on extraocular movement. No periorbital olayinka or erythema. ENT: no acute findings. neck: Supple, (-) JVD. Neurologicaly intact. Eye patch applied to Left eye. Pt advised and ref. to f/u with Opht in 2 -3 days for re-eavl. return if any new changes. Disposition Counseled Patient/Family Regarding: Diagnosis, Need For Followup, Rx Given - Disposition Referrals: Mahin Peguero [Staff Provider] - Disposition: HOME/ ROUTINE Disposition Time: 20:17 Condition: STABLE Additional Instructions: Eye patch for 1 week take medication as prescribed Avoid contacts for 2 weeks, symptoms free Follow up with ophthalmology in 1-2 days for re-evaluation. return to Ed if any worsening or new changes. Prescriptions: Neomycin/Polymyxin/Dexamethaso [Dexamethasone/Neomycin/Polymyxin 5 Ml] 1 drop LEFTEYE QID #1 bottle Instructions: Corneal Abrasion - Clinical Impression Clinical Impression: Corneal abrasion
[2018-01-03] MEDS ORDERED: Tobramycin/Dexamethasone OPHT OINT OS STA (20:38)
[2018-01-03] MEDS ORDERED: Tobramycin 0.3% OPH OINT ONE (20:41)
== END 2018-01-03 20:46 | disposition home or self-care (01) ==
LOC: C.ER 19:41
DX: S05.02XA Injury of conjunctiva and corneal abrasion without foreign body, left eye, initial encounter (principal); X58.XXXA Exposure to other specified factors, initial encounter; Y92.9 Unspecified place or not applicable

== ENCOUNTER 2018-01-31 18:06 | Emergency (ER) | payer OTHER ==
[2018-01-31 18:23] VITALS: BMI 22.8
[2018-01-31 18:28] VITALS: BP 109/74; PULSE 85; RESP 20; TEMP 98.6; O2SAT 97
[2018-01-31 18:58] LABS: SQUAMOUS EPITHIAL 2 /hpf (0-5); URINE BILIRUBIN NEGATIVE (NEGATIVE); URINE BLOOD NEGATIVE (NEGATIVE); URINE CLARITY Clear (Clear); URINE COLOR Straw (YELLOW); URINE GLUCOSE (UA) NORMAL (Normal); URINE LEUKOCYTE ESTERASE NEG Leu/uL (Negative); URINE PROTEIN NEGATIVE (NEGATIVE); URINE UROBILINOGEN NORMAL mg/dL (0.2-1.0)
[2018-01-31 18:59] LABS: HCG,QUALITATIVE URINE NEGATIVE (NEGATIVE)
--- NOTE | 2018-01-31 19:16 | C.PDOC ---
History Of Present Illness 32 y/o female presents to ED with c/o white vaginal discharge, itching and irritation for 3 days. Patient admits to urinary frequency and denies abdominal pain, back pain, dysuria, back pain or any other complaints at this time. Time Seen by Provider: 01/31/18 18:35 Chief Complaint (Nursing): Female Genitourinary History Per: Patient History/Exam Limitations: no limitations Onset/Duration Of Symptoms: Days Current Symptoms Are (Timing): Still Present Quality Of Discomfort: "Pain" Past Medical History Reviewed: Historical Data, Nursing Documentation, Vital Signs Vital Signs: Last Vital Signs Temp 98.6 F 01/31/18 18:22 Pulse 85 01/31/18 18:22 Resp 20 01/31/18 18:22 BP 109/74 01/31/18 18:22 Pulse Ox 97 01/31/18 19:57 - Medical History PMH: No Chronic Diseases Surgical History: No Surg Hx - [facility] Procedures TETANUS TOXOID ADMINIST (12/22/12) Family History: States: No Known Family Hx - Social History Hx Tobacco Use: No Hx Alcohol Use: Yes Hx Substance Use: No - Immunization History Hx Tetanus Toxoid Vaccination: Yes Hx Influenza Vaccination: Yes Hx Pneumococcal Vaccination: No Review Of Systems Constitutional: Negative for: Fever, Chills Gastrointestinal: Negative for: Nausea, Vomiting, Abdominal Pain Genitourinary: Positive for: Frequency, Vaginal Discharge. Negative for: Dysuria, Vaginal Bleeding Skin: Negative for: Rash Physical Exam - Physical Exam Appears: Non-toxic, No Acute Distress Skin: Warm, Dry, No Rash Head: Atraumatic, Normacephalic Eye(s): bilateral: Normal Inspection Oral Mucosa: Moist Cardiovascular: Rhythm Regular Respiratory: Normal Breath Sounds, No Rales, No Rhonchi, No Wheezing Gastrointestinal/Abdominal: Soft, No Tenderness, No Guarding, No Rebound Pelvic: Normal External Exam, No Vaginal Bleeding, Vaginal Discharge (white cheesy) Extremity: Bilateral: Atraumatic Neurological/Psych: Oriented x3, Normal Speech ED Course And Treatment O2 Sat by Pulse Oximetry: 97 (RA) Pulse Ox Interpretation: Normal Progress Note: Urinalysis ordered and reviewed, negative UTI. 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 - Scribe Statement The provider has reviewed the documentation as recorded by the Anjelibyasmine Sanchez All medical record entries made by the Kristen were at my direction and personally dictated by me. I have reviewed the chart and agree that the record accurately reflects my personal performance of the history, physical exam, medical decision making, and the department course for this patient. I have also personally directed, reviewed, and agree with the discharge instructions and disposition.
== END 2018-01-31 19:25 | disposition home or self-care (01) ==
LOC: C.ER 18:06
DX: B37.3 Candidiasis of vulva and vagina (principal)

== ENCOUNTER 2018-03-13 20:50 | Emergency (ER) | payer OTHER ==
[2018-03-13 20:50] VITALS: BMI 22.8
[2018-03-13 21:16] VITALS: BP 122/80; PULSE 99; RESP 20; TEMP 98.6; O2SAT 98
[2018-03-13 21:41] LABS: HCG,QUALITATIVE URINE NEGATIVE (NEGATIVE)
[2018-03-13 21:47] LABS: SQUAMOUS EPITHIAL 8 /hpf (0-5); URINE BILIRUBIN NEGATIVE (NEGATIVE); URINE BLOOD 3+ (NEGATIVE); URINE CLARITY Hazy (Clear); URINE COLOR Yellow (YELLOW); URINE GLUCOSE (UA) NORMAL (Normal); URINE LEUKOCYTE ESTERASE 1+ Leu/uL (Negative); URINE PROTEIN NEGATIVE (NEGATIVE); URINE UROBILINOGEN NORMAL mg/dL (0.2-1.0)
--- NOTE | 2018-03-13 22:09 | C.PDOC ---
History Of Present Illness The patient reports that she was placed on Augmentin 2 days for a throat infection and developed itchy white discharge over the past 1 day. The patient reports that she is having a lot of cough and requesting cough medication. Denies fever, nausea, vomiting, diarrhea, abdominal pain, chest pain, SOB. Time Seen by Provider: 03/13/18 21:18 Chief Complaint (Nursing): Female Genitourinary Recent travel outside of the [place]: No Past Medical History Reviewed: Historical Data, Nursing Documentation, Vital Signs Vital Signs: Last Vital Signs Temp 98.6 F 03/13/18 21:12 Pulse 99 H 03/13/18 21:12 Resp 20 03/13/18 21:12 BP 122/80 03/13/18 21:12 Pulse Ox 98 03/13/18 22:12 - Medical History PMH: No Chronic Diseases - [facility] Procedures TETANUS TOXOID ADMINIST (12/22/12) Family History: States: Unknown Family Hx - Social History Hx Tobacco Use: No Hx Alcohol Use: Yes Hx Substance Use: No - Immunization History Hx Tetanus Toxoid Vaccination: Yes Hx Influenza Vaccination: Yes Hx Pneumococcal Vaccination: No Review Of Systems Constitutional: Negative for: Fever, Chills Eyes: Negative for: Pain ENT: Negative for: Ear Pain Cardiovascular: Negative for: Chest Pain Respiratory: Positive for: Cough. Negative for: Shortness of Breath, Pleuritic Pain Gastrointestinal: Negative for: Nausea, Vomiting Musculoskeletal: Negative for: Neck Pain, Shoulder Pain Skin: Negative for: Rash Neurological: Negative for: Weakness, Numbness Physical Exam - Physical Exam Appears: Non-toxic, No Acute Distress Skin: Normal Color, Warm, No Rash Head: Atraumatic, Tenderness Eye(s): bilateral: Normal Inspection Oral Mucosa: Moist Throat: No Erythema, No Exudate Neck: Normal ROM, Supple Chest: Symmetrical, No Tenderness Cardiovascular: Rhythm Regular, No Friction Rub, No Murmur Respiratory: Normal Breath Sounds, No Rales, No Rhonchi, No Wheezing Gastrointestinal/Abdominal: Soft, No Tenderness Back: Normal Inspection, No CVA Tenderness Extremity: Normal ROM, No Tenderness, No Swelling Neurological/Psych: Oriented x3, Normal Speech, Normal Motor, Normal Sensation Gait: Steady ED Course And Treatment O2 Sat by Pulse Oximetry: 98 (on RA) Pulse Ox Interpretation: Normal Medical Decision Making Medical Decision Making: Patient has no signs of throat or ear infection so patient was instructed to discontinue taking the Augmentin. Diflucan ordered for suspected vaginal yeast infection. Disposition - Disposition Referrals: Negro Galvez DO [Staff Provider] - Disposition: HOME/ ROUTINE Disposition Time: 22:09 Condition: STABLE Additional Instructions: Follow up with the medical doctor/clinic within 1-2 days. Return if worsened. Prescriptions: Fluconazole [Diflucan] 150 mg PO ONCE #2 tab predniSONE [Prednisone] 10 mg PO BID #10 tab Promethazine/Codeine [Phenergan/Codeine Oral Syrup] 5 ml PO Q8 PRN #50 ml PRN Reason: Cough Instructions: Vulvovaginal Yeast Infection, Acute Bronchitis Forms: [facility] (Burkinan) - Clinical Impression Clinical Impression: Vaginal yeast infection, Bronchitis
== END 2018-03-13 22:35 | disposition home or self-care (01) ==
LOC: C.ER 20:50
DX: B37.3 Candidiasis of vulva and vagina (principal); J40 Bronchitis, not specified as acute or chronic

== ENCOUNTER 2018-03-16 19:12 | Emergency (ER) | payer OTHER ==
[2018-03-16 19:13] VITALS: BMI 22.8
[2018-03-16 19:33] VITALS: BP 132/79; PULSE 89; RESP 20; TEMP 98; O2SAT 100
[2018-03-16 20:16] LABS: HCG,QUALITATIVE URINE NEGATIVE (NEGATIVE); SQUAMOUS EPITHIAL < 1 /hpf (0-5); URINE BACTERIA RARE (<OCC); URINE BILIRUBIN NEGATIVE (NEGATIVE); URINE BLOOD NEGATIVE (NEGATIVE); URINE CLARITY Clear (Clear); URINE COLOR Straw (YELLOW); URINE GLUCOSE (UA) NORMAL (Normal); URINE LEUKOCYTE ESTERASE NEG Leu/uL (Negative); URINE PROTEIN NEGATIVE (NEGATIVE); URINE UROBILINOGEN NORMAL mg/dL (0.2-1.0)
--- NOTE | 2018-03-16 20:23 | C.PDOC ---
History Of Present Illness 33 year old female presents to the emergency department with complaints of external vaginal itching and burning with urination for the last four days. Patient states that she was taking Augmentin for a throat infection and her symptoms began two days afterwards. Patient states that she was seen at [facility] on 03-13-18 for the symptoms and was treated with Diflucan at the time, yet her symptoms still persist. She denies vaginal bleeding, fever, abdominal pain, significant discharge and rash. She reports that she gets a yeast infection and a UTI every two months. She states that she was recently checked for an STD by her OB-PROFESSIONAL NURSING ASSISTANT two months ago, which was negative. Time Seen by Provider: 03/16/18 19:43 Chief Complaint (Nursing): Female Genitourinary History Per: Patient History/Exam Limitations: no limitations Onset/Duration Of Symptoms: Days (4) Current Symptoms Are (Timing): Still Present Quality Of Discomfort: Burning, Other (itching) Associated Symptoms: Urinary Symptoms (burning upon urination). denies: Fever, Other (vaginal bleeding, abdominal pain, rash) Past Medical History Reviewed: Historical Data, Nursing Documentation, Vital Signs Vital Signs: Last Vital Signs Temp 98 F 03/16/18 19:26 Pulse 89 03/16/18 19:26 Resp 20 03/16/18 19:26 BP 132/79 03/16/18 19:26 Pulse Ox 100 03/16/18 21:49 - Medical History PMH: No Chronic Diseases Surgical History: No Surg Hx - [facility] Procedures TETANUS TOXOID ADMINIST (12/22/12) Family History: States: No Known Family Hx - Social History Hx Tobacco Use: No Hx Alcohol Use: No Hx Substance Use: No - Immunization History Hx Tetanus Toxoid Vaccination: Yes Hx Influenza Vaccination: Yes Hx Pneumococcal Vaccination: No Review Of Systems Except As Marked, All Systems Reviewed And Found Negative. Constitutional: Negative for: Fever Gastrointestinal: Negative for: Abdominal Pain Genitourinary: Positive for: Dysuria. Negative for: Vaginal Bleeding, Rash Physical Exam - Physical Exam Appears: Non-toxic, No Acute Distress Skin: Warm, Dry Head: Atraumatic, Normacephalic Eye(s): bilateral: Normal Inspection, EOMI Nose: Normal Oral Mucosa: Moist Neck: Normal, Supple Chest: Symmetrical Cardiovascular: Rhythm Regular Respiratory: No Rales, No Rhonchi, No Wheezing Gastrointestinal/Abdominal: Normal Exam, Soft, No Tenderness Back: No CVA Tenderness, No Vertebral Tenderness Pelvic: Normal External Exam, Normal Speculum Exam, No Vaginal Discharge, No Cervical Motion Tenderness, No Cervix Open, No Adnexal Tenderness Extremity: Normal ROM Neurological/Psych: Oriented x3, Normal Speech, Normal Cognition ED Course And Treatment O2 Sat by Pulse Oximetry: 100 (RA) Pulse Ox Interpretation: Normal Progress Note: Plan: Chlamydia/GC RNA. Glucose POC. Urine Culture. HCG Qualitative Urine. UA evaluated, no evidence of UTI. pelvic exam shows in evidence of infectious process. Pt will be treated clinically for the itching secondary to vaginal candidiasis, instructed strict follow up with OB-PROFESSIONAL NURSING ASSISTANT in 1- 2 days. Disposition - Disposition Disposition: HOME/ ROUTINE Disposition Time: 20:21 Condition: STABLE Additional Instructions: Follow up with your PROFESSIONAL NURSING ASSISTANT in 1-2 days. Return to the ER if symptoms persist or worsen. Prescriptions: Clotrimazole [Gyne-Lotrimin] 1 gm VG HS #7 cream.appl Instructions: Vaginal Yeast Infection (DC) Forms: [employer] (Angolan) - Clinical Impression Clinical Impression: Vaginal susan - PA / PLANT OPERATOR CONTROL ROOM OPERATOR / Resident Statement MD/DO has reviewed & agrees with the documentation as recorded. - Scribe Statement The provider has reviewed the documentation as recorded by the Scribe (Miguel Raman) All medical record entries made by the Scribe were at my direction and personally dictated by me. I have reviewed the chart and agree that the record accurately reflects my personal performance of the history, physical exam, medical decision making, and the department course for this patient. I have also personally directed, reviewed, and agree with the discharge instructions and disposition.
== END 2018-03-16 20:52 | disposition home or self-care (01) ==
LOC: C.ER 19:12
DX: B37.3 Candidiasis of vulva and vagina (principal)

== ENCOUNTER 2018-04-10 18:05 | Emergency (ER) | payer OTHER ==
[2018-04-10 18:16] VITALS: BMI 24.9
[2018-04-10 18:19] VITALS: BP 102/68; PULSE 79; RESP 17; TEMP 98.7; O2SAT 97
--- NOTE | 2018-04-10 19:43 | C.PDOC ---
History Of Present Illness 33yo female, comes to ER complaining of itchiness to the right side of her vagina x 2 days. She reports moderate irritation and pain but denies any drainage from the site; she also denies any vaginal discharge. Patient reports she recently had a full SEED CORN PRODUCTION MANAGER workup which was normal. She is currently sexually active without protection with the same partner for the past 4 years. Otherwise , no fever, chills, dysuria, hematuria or vaginal bleeding. No other complaints. Time Seen by Provider: 04/10/18 19:16 Chief Complaint (Nursing): Female Genitourinary History Per: Patient History/Exam Limitations: no limitations Onset/Duration Of Symptoms: Days Current Symptoms Are (Timing): Still Present Past Medical History Reviewed: Historical Data, Nursing Documentation, Vital Signs Vital Signs: Last Vital Signs Temp 98.7 F 04/10/18 18:17 Pulse 79 04/10/18 18:17 Resp 17 04/10/18 18:17 BP 102/68 04/10/18 18:17 Pulse Ox 97 04/10/18 21:38 - Medical History PMH: No Chronic Diseases Surgical History: No Surg Hx - [facility] Procedures TETANUS TOXOID ADMINIST (12/22/12) Family History: States: No Known Family Hx - Social History Hx Tobacco Use: No Hx Alcohol Use: Yes Hx Substance Use: No - Immunization History Hx Tetanus Toxoid Vaccination: No Hx Influenza Vaccination: No Hx Pneumococcal Vaccination: No Review Of Systems Constitutional: Negative for: Fever, Chills Genitourinary: Positive for: Rash (itchiness, irritation and pain to right side of vagina). Negative for: Dysuria, Hematuria, Vaginal Discharge, Vaginal Bleeding Physical Exam - Physical Exam Appears: Non-toxic, No Acute Distress Skin: Normal Color Head: Normacephalic Eye(s): bilateral: Normal Inspection Pelvic: No Vaginal Bleeding, No Vaginal Discharge, Other (herpetiform rash to upper external aspect of right labia. No drainage noted.) Neurological/Psych: Oriented x3 ED Course And Treatment O2 Sat by Pulse Oximetry: 97 (RA) Pulse Ox Interpretation: Normal Progress Note: Patient informed of physical exam findings and instructed to follow up with her SEED CORN PRODUCTION MANAGER in 2-3 days. Patient given prescription for Acyclovir and instructed to take medication as prescribed. Disposition Counseled Patient/Family Regarding: Diagnosis, Need For Followup - Disposition Disposition: HOME/ ROUTINE Disposition Time: 19:39 Condition: STABLE Additional Instructions: Please follow up with SEED CORN PRODUCTION MANAGER or PMD Return to ER if worse Prescriptions: Acyclovir [Zovirax] 400 mg PO TID #21 tablet Instructions: Genital Herpes (DC) Forms: [employer] (Jordanian) - Clinical Impression Clinical Impression: Genital herpes - PA / EDGE SANDER / Resident Statement MD/DO has reviewed & agrees with the documentation as recorded. - Scribe Statement The provider has reviewed the documentation as recorded by the Kristen Capone Provider Attestation: All medical record entries made by the Kristen were at my direction and personally dictated by me. I have reviewed the chart and agree that the record accurately reflects my personal performance of the history, physical exam, medical decision making, and the department course for this patient. I have also personally directed, reviewed, and agree with the discharge instructions and disposition.
== END 2018-04-10 19:50 | disposition home or self-care (01) ==
LOC: C.ER 18:05
DX: A60.00 Herpesviral infection of urogenital system, unspecified (principal)

== ENCOUNTER 2018-05-03 19:13 | Emergency (ER) | payer OTHER ==
[2018-05-03 19:13] VITALS: BMI 24.9
[2018-05-03 19:55] VITALS: RESP 16; O2SAT 100
--- NOTE | 2018-05-03 20:03 | C.PDOC ---
History Of Present Illness 33-year-old female presents to the ED for evaluation urinary frequency, vaginal itching and clear white discharge. Patient was evaluated by her BURRER OPERATOR two days ago, but was unable to get her urine tested. Patient presents to the ED requesting urine testing. She was recently diagnosed with herpes. Patient states she was recently tested for STDs and is refusing any additional STD testing in the ED as she reports she was tested by compressor assembler. Patient denies fever, chills, nausea, vomiting, diarrhea, constipation, abdominal pain, and shortness of breath. Time Seen by Provider: 05/03/18 19:40 Chief Complaint (Nursing): Female Genitourinary History Per: Patient History/Exam Limitations: no limitations Onset/Duration Of Symptoms: Days Current Symptoms Are (Timing): Still Present Associated Symptoms: Urinary Symptoms (urinary frequency ). denies: Fever, Chills Additional History Per: Patient Abnormal Vaginal Bleeding: No Past Medical History Reviewed: Historical Data, Nursing Documentation, Vital Signs Vital Signs: Last Vital Signs Temp 99.0 F 05/03/18 19:48 Pulse 92 H 05/03/18 19:48 Resp 16 05/03/18 19:48 BP 126/78 05/03/18 19:48 Pulse Ox 100 05/03/18 19:48 - Medical History PMH: No Chronic Diseases Surgical History: No Surg Hx - [facility] Procedures TETANUS TOXOID ADMINIST (12/22/12) Family History: States: Unknown Family Hx - Social History Hx Tobacco Use: No Hx Alcohol Use: Yes Hx Substance Use: No - Immunization History Hx Tetanus Toxoid Vaccination: No Hx Influenza Vaccination: No Hx Pneumococcal Vaccination: No Review Of Systems Constitutional: Negative for: Fever, Chills Cardiovascular: Negative for: Chest Pain, Palpitations, Orthopnea, Edema, Light Headedness Respiratory: Negative for: Shortness of Breath, SOB with Excertion, Wheezing Gastrointestinal: Negative for: Nausea, Vomiting, Abdominal Pain, Diarrhea, Constipation Genitourinary: Positive for: Frequency, Vaginal Discharge, Other (vaginal itching ) Physical Exam - Physical Exam Appears: Well, Non-toxic, No Acute Distress Skin: Normal Color, Warm, Dry Head: Atraumatic, Normacephalic Eye(s): bilateral: Normal Inspection Neck: Normal Chest: Symmetrical, No Deformity Cardiovascular: Rhythm Regular Gastrointestinal/Abdominal: Soft, No Tenderness, No Guarding, No Rebound Pelvic: Other (No active herpetic lesions to the external vulva area) Extremity: Normal ROM Neurological/Psych: Normal Speech, Normal Cognition Gait: Steady ED Course And Treatment O2 Sat by Pulse Oximetry: 100 (on RA) Pulse Ox Interpretation: Normal Medical Decision Making Medical Decision Making: Impression: 33 year old female with urinary frequency, vaginal discharge and itching Plan: * urine culture * urinalysis * reassess and disposition Progress: Urine culture obtained. Urinalysis ordered and reviewed. Patient complaining of itching and white discharge consistent with susan. Will give diflucan. UA negative for leukocytes and nitrates but shows rare bacteria. Spoke to patient at length and she is requesting treatment as she has worsening dysuria. Not thought secondary to herpes as I cannot see any active breakout lesions. Ucx sent. Disposition - Disposition Disposition: HOME/ ROUTINE Disposition Time: 20:32 Condition: GOOD Additional Instructions: Follow-up with your instructor knitting. Continue taking your antivirals. Take full course of antibiotic for uti. Return to ED if condition worsens. Prescriptions: Cephalexin [Keflex] 500 mg PO TID #21 capsule Instructions: Urinary Tract Infections in Adults, Yeast Infection (DC) Forms: [employer] (Estonian) - Clinical Impression Clinical Impression: UTI (urinary tract infection), Vaginal susan - Scribe Statement The provider has reviewed the documentation as recorded by the Scribe (Emelina Ramires) Provider Attestation: All medical record entries made by the Scribe were at my direction and personally dictated by me. I have reviewed the chart and agree that the record accurately reflects my personal performance of the history, physical exam, medical decision making, and the department course for this patient. I have also personally directed, reviewed, and agree with the discharge instructions and disposition.
[2018-05-03 20:11] LABS: SQUAMOUS EPITHIAL 5 /hpf (0-5); URINE BACTERIA RARE (<OCC); URINE BILIRUBIN NEGATIVE (NEGATIVE); URINE BLOOD NEGATIVE (NEGATIVE); URINE CLARITY Clear (Clear); URINE COLOR Yellow (YELLOW); URINE GLUCOSE (UA) NORMAL (Normal); URINE LEUKOCYTE ESTERASE NEG Leu/uL (Negative); URINE PROTEIN NEGATIVE (NEGATIVE); URINE UROBILINOGEN NORMAL mg/dL (0.2-1.0)
[2018-05-03 20:57] VITALS: BP 125/77; PULSE 89; TEMP 99
== END 2018-05-03 20:56 | disposition home or self-care (01) ==
LOC: C.ER 19:13
DX: N39.0 Urinary tract infection, site not specified (principal); B37.3 Candidiasis of vulva and vagina

== ENCOUNTER 2018-07-07 08:37 | Inpatient (IN) | payer OTHER ==
[2018-07-07 08:45] VITALS: BMI 19.1
[2018-07-07] MEDS ORDERED: Morphine 4 MG/ML VIAL IV STA (09:17)
[2018-07-07] MEDS ORDERED: Morphine 4 MG/ML VIAL ONE (09:17)
[2018-07-07] MEDS ORDERED: Ketamine 50 mg/ml Inj (10 ml) IV STA (10:17)
[2018-07-07] MEDS ORDERED: Ketamine 50 mg/ml Inj (2 ml) ONE (10:29)
--- NOTE | 2018-07-07 11:16 | C.PDOC ---
<Guero Guy - Last Filed: 07/07/18 11:13> History Per: Patient History/Exam Limitations: no limitations Onset/Duration Of Symptoms: Days Current Symptoms Are (Timing): Still Present <Terri Rehman - Last Filed: 07/07/18 11:26> Chief Complaint (Nursing): Upper Extremity Problem/Injury Past Medical History Vital Signs: Last Vital Signs Temp 98.5 F 07/07/18 10:34 Pulse 90 07/07/18 11:03 Resp 18 07/07/18 11:03 BP 121/73 07/07/18 11:03 Pulse Ox 99 07/07/18 11:03 - [facility] Procedures TETANUS TOXOID ADMINIST (12/22/12) Family History: States: Unknown Family Hx - Social History Hx Tobacco Use: No Hx Alcohol Use: Yes Hx Substance Use: No - Immunization History Hx Tetanus Toxoid Vaccination: No Hx Influenza Vaccination: No Hx Pneumococcal Vaccination: No <Guero Guy - Last Filed: 07/07/18 11:13> Reviewed: Historical Data, Nursing Documentation, Vital Signs Vital Signs: Last Vital Signs Temp 98.5 F 07/07/18 10:34 Pulse 90 07/07/18 11:03 Resp 18 07/07/18 11:03 BP 121/73 07/07/18 11:03 Pulse Ox 99 07/07/18 11:16 - [facility] Procedures TETANUS TOXOID ADMINIST (12/22/12) <Terri Rehman - Last Filed: 07/07/18 11:26> ED Course And Treatment O2 Sat by Pulse Oximetry: 99 <Guero Guy - Last Filed: 07/07/18 11:13> Disposition <Guero Guy - Last Filed: 07/07/18 11:13> <Terri Rehman - Last Filed: 07/07/18 11:26> - Disposition Forms: [facility] (Macedonian)
[2018-07-07] MEDS ORDERED: Sodium Chloride 0.9% 1,000 ML IV STA (11:17)
[2018-07-07 11:33] LABS: BASO % 0.3 % (0.0-2.0); EOS % 0.1 % (0.0-4.0); HEMOGLOBIN 13.6 g/dL (11.0-16.0); LYMPH # 1.7 K/uL (1.0-4.3); LYMPH % 14.7 % (20.0-40.0); MEAN CELL VOLUME 96.1 fL (81.0-99.0); MEAN CORPUSCULAR HEMOGLOBIN 32.8 pg (27.0-31.0); MEAN CORPUSCULAR HGB CONC 34.1 g/dL (33.0-37.0); MEAN PLATELET VOLUME 9.2 fL (7.2-11.7); MONO # 0.6 K/uL (0.0-0.8); MONO % 5.3 % (0.0-10.0); NEUT # 9.4 K/uL (1.8-7.0); NEUT % 79.6 % (50.0-75.0); RBC 4.15 Mil/uL (3.80-5.20); RED CELL DISTRIBUTION WIDTH 12.1 % (11.5-14.5); WHITE BLOOD COUNT 11.8 K/uL (4.8-10.8)
--- NOTE | 2018-07-07 11:33 | C.PDOC ---
History Of Present Illness 33 y/o female presents to ED complaining of severe pain to her left elbow s/p fall last night while intoxicated of alcohol. Patient states she woke up this morning with severe pain. Patient had previous open reduction fixation for a forearm fracture several years ago. Patient denies LOC or any other physical injuries. Chief Complaint (Nursing): Upper Extremity Problem/Injury History Per: Patient History/Exam Limitations: no limitations Onset/Duration Of Symptoms: Days Current Symptoms Are (Timing): Still Present Past Medical History Reviewed: Historical Data, Nursing Documentation, Vital Signs Vital Signs: Last Vital Signs Temp 98.5 F 07/07/18 10:34 Pulse 90 07/07/18 11:03 Resp 18 07/07/18 11:03 BP 121/73 07/07/18 11:03 Pulse Ox 99 07/07/18 11:03 - [facility] Procedures TETANUS TOXOID ADMINIST (12/22/12) Family History: States: No Known Family Hx - Social History Hx Tobacco Use: No Hx Alcohol Use: Yes Hx Substance Use: No - Immunization History Hx Tetanus Toxoid Vaccination: No Hx Influenza Vaccination: No Hx Pneumococcal Vaccination: No Review Of Systems Except As Marked, All Systems Reviewed And Found Negative. Musculoskeletal: Positive for: Other (L elbow pain). Negative for: Neck Pain, Back Pain Physical Exam - Physical Exam Appears: Non-toxic, No Acute Distress Skin: Warm, Dry Head: Atraumatic, Normacephalic Eye(s): bilateral: Normal Inspection Oral Mucosa: Moist Neck: Normal, Supple Chest: Symmetrical Cardiovascular: Rhythm Regular, No Murmur Respiratory: Normal Breath Sounds, No Rales, No Rhonchi, No Wheezing Gastrointestinal/Abdominal: Soft, No Tenderness Extremity: Normal ROM (of L hand), Tenderness (to L elbow), Capillary Refill (less than 2 seconds), Deformity (L elbow) Extremity: Bilateral: Normal Color And Temperature Pulses: Left Radial: Normal Neurological/Psych: Oriented x3, Normal Speech, Normal Motor, Normal Sensation Gait: Steady ED Course And Treatment - Laboratory Results Result Diagrams: 07/07/18 11:29 07/07/18 11:29 O2 Sat by Pulse Oximetry: 99 (RA) Pulse Ox Interpretation: Normal - Other Rad Forearm X-Ray X-Ray: Read By Radiologist Interpretation: FINDINGS: BONES: Patient is status post prior internal fixation at the left ulna. There is a fracture in 1 of the stabilizing screws noted. JOINT SPACES: There is a posterior dislocation of the left elbow noted. OTHER FINDINGS: None. IMPRESSION: Posterior dislocation of the left elbow. Progress Note: EKG, left elbow and left forearm x-ray ordered. Ketalar, morphine, IV fluids, and tylenol administered. Called Dr. Mendoza who initially instructed to reduce in ER. Dr. Mendoaz called back and requested to admit patient to hospitalist and to keep patient NPO and bring to OR. Patient states that she drank some water at 7am and has not eaten since. Disposition - Disposition Disposition: HOSPITALIZED Disposition Time: 12:13 Condition: STABLE - Clinical Impression Clinical Impression: Elbow dislocation - PA / DROSS PULLER / Resident Statement MD/DO has reviewed & agrees with the documentation as recorded. - Scribe Statement The provider has reviewed the documentation as recorded by the Scribe Jeannie Alarcon All medical record entries made by the Scribe were at my direction and personally dictated by me. I have reviewed the chart and agree that the record accurately reflects my personal performance of the history, physical exam, medical decision making, and the department course for this patient. I have also personally directed, reviewed, and agree with the discharge instructions and disposition. Decision To Admit - Pt Status Changed To: Hospital Disposition Of: Inpatient - Admit Certification Admit to Inpatient:: After my assessment, the patient will require hospitalization for at least two midnights. This is because of the severity of symptoms shown, intensity of services needed, and/or the medical risk in this patient being treated as an outpatient. - InPatient: Physician Admission Certification: I certify that this patient requires 2 or more midnights of care for the following reason:: pt is going to OR - . Bed Request Type: Regular Admitting Physician: Aime Ramires Patient Diagnosis: Elbow dislocation
[2018-07-07 11:47] LABS: ALB/GLOB RATIO 1.4 (1.0-2.1); ALBUMIN 4.8 g/dL (3.5-5.0); ALT/SGPT 33 U/L (9-52); AST/SGOT 35 U/L (14-36); BLOOD UREA NITROGEN 12 mg/dL (7-17); CALCIUM 8.8 mg/dl (8.6-10.4); GFR NON-AFRICAN AMERICAN > 60
[2018-07-07 11:49] LABS: INR 1.1; PROTHROMBIN TIME 12.1 SECONDS (9.7-12.2)
[2018-07-07 12:14] LABS: BARBITURATES, UR NEGATIVE (NEGATIVE); BENZODIAZEPINES, UR NEGATIVE (NEGATIVE); PHENCYCLIDINE, UR NEGATIVE (NEGATIVE)
--- NOTE | 2018-07-07 12:14 | CP.PCM.HP ---
History of Present Illness - History of Present Illness History of Present Illness: Hospitalist History and Physical Patient was seen in the ER Bed #9 at 11:40 AM 07/07/18 33 year old female (PMHx SLE and Depression) who presents to [facility] ER S/P fall after midnight on 07/07/18. Patient was at a holiday constitution party with her co- workers and had some alcohol. Stated that she had 3 12 ounce cups of a honey alcohol with red bull. While getting out of her boyfriend's care when he delivered her to her home, she tripped and fell onto her left arm. She does not recall whether she hit her head. There was NO chest pain, NO palpitations, NO SOB before the fall. X Rays of the Left UE reveal a dislocated Left Elbow and a prior ORIF with metal hardware of the Left Forearm. ER has contacted Orthopedic Surgeon Dr. Garzon who will be taking patient to the OR. She last had something by mouth at 7 AM and this was water. Blood work and EKG reviewed in the ER and these are acceptable. Patient is medically optimized for the pending procedure. 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, Smokes 3 cig per day, Drinks only on special occasions, NO illicit drugs Family Hx: Son with Asthma, Mom and Dad she does not know medical history, Brother healthy Advance Directive: Denies Proxy: Mom Oj Luke Code Status: Full ROS: NO chest pain NO palpitations NO SOB/Cough NO dysphagia/odynophagia NO abdominal pain NO n/v/d/c with last bowel movement 07/06/18 NO burning/pain with urination NO new changes with vision NO new changes with hearing NO rashes NO paresthesias NO headaches (+) Lightheaded while she got up to go to the bathroom in the ER Exam: General: AAOX3, Teary because of having to have surgery HEENT: NCA, EOMI, PERRLA, NO pharyngeal erythema/exudate, NO cervical/supraclavicular/submandibular lymphadenopathy, NO thyromegaly Cardio: NS1 and NS2, NO M/R/G Resp: CTA B/L NO R/R/W GI: BSx4, Soft, NT, ND, NO HSM, NO guarding rebound tenderness, NO guarding Ext: Pulses are strong and equal, Capillary Refill is 2 seconds Neuro: CN II throubh XII are grossly intact Assessments: 1). Left Elbow Dislocation S/P Fall NPO For OR with Orthopedic Surgeon Dr. Garzon Medically optimized for surgery Management as per orthopedic team Will obtain CT Head after surgery 2). Leukocytosis Likely stress response Will monitor 3). Hx SLE Being followed by Supervisor Insulation Dr. Mera whom she last saw 05/23/18 Plaquinal 200 mg PO 2x/day 4). Hx Depression Being followed by Psychiatrist Dr. Madera at [facility] 1x/month with last appointment 2 weeks ago and will see every month Prozac 20 mg PO 1x/day 5). Prophylaxis HOLD anticoagulation: anticoagulation choice as per Orthopedic Team after surgery NO GI prophylaxis is indicated at this time NPO at this time FULL CODE Aime Ramires D.O. Present on Admission - Present on Admission Any Indicators Present on Admission: Yes History of DVT/PE: No History of Uncontrolled Diabetes: No Urinary Catheter: No Review of Systems - Review of Systems Review of Systems: Please see above Past Patient History - Infectious Disease Hx of Infectious Diseases: None (Please see above) - Past Social History Smoking Status: Light Smoker < 10 Cigarettes Daily - ENDOCRINE/METABOLIC Hx Endocrine Disorders: Yes Hx Systemic Lupus Erythematosus: Yes Other/Comment: Lupus - GENITOURINARY/GYNECOLOGICAL Hx Genitourinary Disorders: Yes Hx Urinary Tract Infection: Yes - PSYCHIATRIC Hx Substance Use: No - SURGICAL HISTORY Hx Surgeries: Yes Hx Musculoskeletal Surgery: Yes (LEFT FOREARM) Other/Comment: Benign tumor removed from Rt. hip surgery - ANESTHESIA Hx Anesthesia: Yes Hx Anesthesia Reactions: No Meds Allergies/Adverse Reactions: Allergies Allergy/AdvReac Type Severity Reaction Status Date / Time No Known Allergies Allergy Verified 07/07/18 09:01 Results - Vital Signs Recent Vital Signs: Last Vital Signs Temp 98.5 F 07/07/18 10:34 Pulse 90 07/07/18 11:03 Resp 18 07/07/18 11:03 BP 121/73 07/07/18 11:03 Pulse Ox 99 07/07/18 11:34 - Labs Result Diagrams: 07/07/18 11:29 07/07/18 11:29 Labs: Laboratory Results - last 24 hr 07/07/18 07/07/18 07/07/18 11:29 11:29 11:29 WBC 11.8 H RBC 4.15 Hgb 13.6 Hct 39.8 MCV 96.1 MCH 32.8 H MCHC 34.1 RDW 12.1 Plt Count 305 MPV 9.2 Neut % (Auto) 79.6 H Lymph % (Auto) 14.7 L [place] % (Auto) 5.3 Eos % (Auto) 0.1 Baso % (Auto) 0.3 Neut # (Auto) 9.4 H Lymph # (Auto) 1.7 [place] # (Auto) 0.6 Eos # (Auto) 0.0 Baso # (Auto) 0.0 PT 12.1 INR 1.1 APTT 28 Sodium 139 Potassium 3.6 Chloride 101 Carbon Dioxide 22 Anion Gap 19 BUN 12 Creatinine 0.6 L Est GFR ( Amer) > 60 Est GFR (Non-Af Amer) > 60 Random Glucose 103 Calcium 8.8 Total Bilirubin 0.5 AST 35 ALT 33 Alkaline Phosphatase 87 Total Protein 8.3 Albumin 4.8 Globulin 3.5 Albumin/Globulin Ratio 1.4 Urine HCG, Qual Blood Type 07/07/18 07/07/18 11:29 11:45 WBC RBC Hgb Hct MCV MCH MCHC RDW Plt Count MPV Neut % (Auto) Lymph % (Auto) [place] % (Auto) Eos % (Auto) Baso % (Auto) Neut # (Auto) Lymph # (Auto) [place] # (Auto) Eos # (Auto) Baso # (Auto) PT INR APTT Sodium Potassium Chloride Carbon Dioxide Anion Gap BUN Creatinine Est GFR ( Amer) Est GFR (Non-Af Amer) Random Glucose Calcium Total Bilirubin AST ALT Alkaline Phosphatase Total Protein Albumin Globulin Albumin/Globulin Ratio Urine HCG, Qual Negative Blood Type B POSITIVE Decision To Admit - Pt Status Changed To: Hospital Disposition Of: Inpatient - Admit Certification Admit to Inpatient:: After my assessment, the patient will require hospitalization for at least two midnights. This is because of the severity of symptoms shown, intensity of services needed, and/or the medical risk in this patient being treated as an outpatient. - InPatient: Physician Admission Certification:: Giancarlo Kapadia . Bed Request Type: Regular
[2018-07-07 12:15] LABS: OPIATES, UR POSITIVE (NEGATIVE)
--- NOTE | 2018-07-07 13:05 | RAD ---
Date of service: 07/07/2018 PROCEDURE: Radiographs of the Left Forearm HISTORY: fall COMPARISON: None available. TECHNIQUE: Frontal and lateral views obtained. FINDINGS: BONES: Patient is status post prior internal fixation at the left ulna. There is a fracture in 1 of the stabilizing screws noted. JOINT SPACES: There is a posterior dislocation of the left elbow noted. OTHER FINDINGS: None. IMPRESSION: Posterior dislocation of the left elbow.
[2018-07-07] MEDS ORDERED: Midazolam 2 MG/2 ML VIAL ONE (13:54)
[2018-07-07] MEDS ORDERED: Succinylcholine Chloride 20 mg/ml Syr (5 ml) IV ONE (13:54)
[2018-07-07] MEDS ORDERED: Propofol 10 mg/ml Inj (20 ML) ONE (13:54)
[2018-07-07] MEDS ORDERED: Rocuronium 10 mg/ml (10 ml) ONE (13:55)
--- NOTE | 2018-07-07 14:25 | PCM.SURG1 ---
Surgeon's Initial Post Op Note - Surgeon's Notes Surgeon: Kelly Ekg Tech: DR Tsang- podiatry resident Type of Anesthesia: General Endo Anesthesia Administered By: DR Mohit Ellis Pre-Operative Diagnosis: Dislocated L elbow Operative Findings: Dislocated L ulno-humeral joint Post-Operative Diagnosis: as above Operation Performed: Closed reducution dislcoated L elbow. applx long arm posterior splint. positioning of fluoro/intepreattaion of video images Specimen/Specimens Removed: n/a Estimated Blood Loss: EBL {In ML}: 0 Blood Products Given: N/A Drains Used: No Drains Post-Op Condition: Good Date of Surgery/Procedure: 07/07/18 Time of Surgery/Procedure: 14:10 (time in room 1:55/anesthesia indcutiob mtime 1:55)
[2018-07-07] MEDS ORDERED: HYDROmorphone 0.5 mg/0.5 ml ISec IVP PRN (14:26)
[2018-07-07 15:30] VITALS: PULSE 88
[2018-07-07] MEDS ORDERED: Sodium Chloride 0.9% 500 ML IV ONE (16:00)
[2018-07-07 16:11] VITALS: BP 119/65; RESP 13; TEMP 98.6
[2018-07-07 17:01] VITALS: O2SAT 99
--- NOTE | 2018-07-07 17:38 | RAD ---
Date of service: 07/07/2018 PROCEDURE: Radiographs of the left elbow. HISTORY: fall COMPARISON: No prior. FINDINGS: BONES: No evidence of acute displaced fracture. Status post prior internal fixation at the proximal and mid left ulna JOINTS: Posterior dislocation of the left radius and olecranon process relative to the humeral condyle SOFT TISSUES: Normal. JOINT EFFUSION: None. OTHER FINDINGS: None IMPRESSION: Posterior dislocation of the left elbow.
--- NOTE | 2018-07-07 19:04 | CP.PCM.DIS ---
<Patricia Murrell - Last Filed: 07/07/18 18:59> Provider - Provider Date of Admission: 07/07/18 12:12 Attending physician: Aime Ramires MD Consults: 07/07/18 13:01 Orthopedic Consult Routine Comment: Physician is already aware of patient. Thank you Consulting Provider: Rm Mendoza III Consulting Physician: Rm Mendoza III Reason for Consult: Left Elbow Dislocation Time Spent in preparation of Discharge (in minutes): 20 Diagnosis - Discharge Diagnosis (1) Elbow dislocation Status: Acute Hospital Course - Lab Results Lab Results: Most Recent Lab Values WBC 11.8 K/uL (4.8-10.8) H 07/07/18 11:29 RBC 4.15 Mil/uL (3.80-5.20) 07/07/18 11:29 Hgb 13.6 g/dL (11.0-16.0) 07/07/18 11:29 Hct 39.8 % (34.0-47.0) 07/07/18 11:29 MCV 96.1 fL (81.0-99.0) 07/07/18 11:29 MCH 32.8 pg (27.0-31.0) H 07/07/18 11:29 MCHC 34.1 g/dL (33.0-37.0) 07/07/18 11:29 RDW 12.1 % (11.5-14.5) 07/07/18 11:29 Plt Count 305 K/uL (130-400) 07/07/18 11:29 MPV 9.2 fL (7.2-11.7) 07/07/18 11:29 Neut % (Auto) 79.6 % (50.0-75.0) H 07/07/18 11:29 Lymph % (Auto) 14.7 % (20.0-40.0) L 07/07/18 11:29 [place] % (Auto) 5.3 % (0.0-10.0) 07/07/18 11:29 Eos % (Auto) 0.1 % (0.0-4.0) 07/07/18 11:29 Baso % (Auto) 0.3 % (0.0-2.0) 07/07/18 11:29 Neut # (Auto) 9.4 K/uL (1.8-7.0) H 07/07/18 11:29 Lymph # (Auto) 1.7 K/uL (1.0-4.3) 07/07/18 11:29 [place] # (Auto) 0.6 K/uL (0.0-0.8) 07/07/18 11:29 Eos # (Auto) 0.0 K/uL (0.0-0.7) 07/07/18 11:29 Baso # (Auto) 0.0 K/uL (0.0-0.2) 07/07/18 11:29 PT 12.1 SECONDS (9.7-12.2) 07/07/18 11:29 INR 1.1 07/07/18 11:29 APTT 28 SECONDS (21-34) 07/07/18 11:29 Sodium 139 mmol/L (132-148) 07/07/18 11:29 Potassium 3.6 mmol/L (3.6-5.2) 07/07/18 11:29 Chloride 101 mmol/L (98-107) 07/07/18 11:29 Carbon Dioxide 22 mmol/L (22-30) 07/07/18 11:29 Anion Gap 19 (10-20) 07/07/18 11:29 BUN 12 mg/dL (7-17) 07/07/18 11:29 Creatinine 0.6 mg/dL (0.7-1.2) L 07/07/18 11:29 Est GFR ( Amer) > 60 07/07/18 11:29 Est GFR (Non-Af Amer) > 60 07/07/18 11:29 Random Glucose 103 mg/dL (65-105) 07/07/18 11:29 Calcium 8.8 mg/dl (8.6-10.4) 07/07/18 11:29 Total Bilirubin 0.5 mg/dL (0.2-1.3) 07/07/18 11:29 AST 35 U/L (14-36) 07/07/18 11:29 ALT 33 U/L (9-52) 07/07/18 11:29 Alkaline Phosphatase 87 U/L (38-126) 07/07/18 11:29 Total Protein 8.3 g/dL (6.3-8.3) 07/07/18 11:29 Albumin 4.8 g/dL (3.5-5.0) 07/07/18 11:29 Globulin 3.5 gm/dL (2.2-3.9) 07/07/18 11:29 Albumin/Globulin Ratio 1.4 (1.0-2.1) 07/07/18 11:29 Urine HCG, Qual Negative (NEGATIVE) 07/07/18 11:45 Urine Opiates Screen Positive (NEGATIVE) H 07/07/18 11:45 Urine Methadone Screen Negative (NEGATIVE) 07/07/18 11:45 Ur Barbiturates Screen Negative (NEGATIVE) 07/07/18 11:45 Ur Phencyclidine Scrn Negative (NEGATIVE) 07/07/18 11:45 Ur Amphetamines Screen Negative (NEGATIVE) 07/07/18 11:45 U Benzodiazepines Scrn Negative (NEGATIVE) 07/07/18 11:45 U Oth Cocaine Metabols Negative (NEGATIVE) 07/07/18 11:45 U Cannabinoids Screen Negative (NEGATIVE) 07/07/18 11:45 Blood Type B POSITIVE 07/07/18 11:29 Antibody Screen Negative 07/07/18 11:29 - Hospital Course Hospital Course: Pt was treated for an acute elbow dislocation s/p fall. Imaging showedleft elbow dislocation. Dr. Mendoza consulted and taken to surgery. Patient signed out AMA. Pt informed of risks of leaving now before head CT taken including cerebral hemorrage, stroke, unstable vitals, infection and . Pt understood risks and chose to leave against medical advice as she needs to go home to care for her daughter. Pt advised to return to the ED with worsening of symptoms HPI on admission 33 year old female (PMHx SLE and Depression) who presents to [facility] ER S/P fall after midnight on 07/07/18. Patient was at a holiday libertarian with her co- workers and had some alcohol. Stated that she had 3 12 ounce cups of a honey alcohol with red bull. While getting out of her boyfriend's care when he delivered her to her home, she tripped and fell onto her left arm. She does not recall whether she hit her head. There was NO chest pain, NO palpitations, NO SOB before the fall. X Rays of the Left UE reveal a dislocated Left Elbow and a prior ORIF with metal hardware of the Left Forearm. ER has contacted Orthopedic Surgeon Dr. Garzon who will be taking patient to the OR. She last had something by mouth at 7 AM and this was water. Blood work and EKG reviewed in the ER and these are acceptable. Patient is medically optimized for the pending procedure. Discharge Exam - Additional Findings Additional findings: Patient left AMA Discharge Plan - Follow Up Plan Condition: STABLE Disposition: HOME/ ROUTINE <Talon Zuñiga - Last Filed: 07/08/18 07:18> Provider - Provider Date of Admission: 07/07/18 12:12 Attending physician: Aime Ramires MD Consults: 07/07/18 13:01 Orthopedic Consult Routine Comment: Physician is already aware of patient. Thank you Consulting Provider: Rm Mendoza III Consulting Physician: Rm Mendoza III Reason for Consult: Left Elbow Dislocation Hospital Course - Lab Results Lab Results: Most Recent Lab Values WBC 11.8 K/uL (4.8-10.8) H 07/07/18 11:29 RBC 4.15 Mil/uL (3.80-5.20) 07/07/18 11:29 Hgb 13.6 g/dL (11.0-16.0) 07/07/18 11:29 Hct 39.8 % (34.0-47.0) 07/07/18 11:29 MCV 96.1 fL (81.0-99.0) 07/07/18 11:29 MCH 32.8 pg (27.0-31.0) H 07/07/18 11:29 MCHC 34.1 g/dL (33.0-37.0) 07/07/18 11:29 RDW 12.1 % (11.5-14.5) 07/07/18 11:29 Plt Count 305 K/uL (130-400) 07/07/18 11:29 MPV 9.2 fL (7.2-11.7) 07/07/18 11:29 Neut % (Auto) 79.6 % (50.0-75.0) H 07/07/18 11:29 Lymph % (Auto) 14.7 % (20.0-40.0) L 07/07/18 11:29 [place] % (Auto) 5.3 % (0.0-10.0) 07/07/18 11:29 Eos % (Auto) 0.1 % (0.0-4.0) 07/07/18 11:29 Baso % (Auto) 0.3 % (0.0-2.0) 07/07/18 11:29 Neut # (Auto) 9.4 K/uL (1.8-7.0) H 07/07/18 11:29 Lymph # (Auto) 1.7 K/uL (1.0-4.3) 07/07/18 11:29 [place] # (Auto) 0.6 K/uL (0.0-0.8) 07/07/18 11:29 Eos # (Auto) 0.0 K/uL (0.0-0.7) 07/07/18 11:29 Baso # (Auto) 0.0 K/uL (0.0-0.2) 07/07/18 11:29 PT 12.1 SECONDS (9.7-12.2) 07/07/18 11:29 INR 1.1 07/07/18 11:29 APTT 28 SECONDS (21-34) 07/07/18 11:29 Sodium 139 mmol/L (132-148) 07/07/18 11:29 Potassium 3.6 mmol/L (3.6-5.2) 07/07/18 11:29 Chloride 101 mmol/L (98-107) 07/07/18 11:29 Carbon Dioxide 22 mmol/L (22-30) 07/07/18 11:29 Anion Gap 19 (10-20) 07/07/18 11:29 BUN 12 mg/dL (7-17) 07/07/18 11:29 Creatinine 0.6 mg/dL (0.7-1.2) L 07/07/18 11:29 Est GFR ( Amer) > 60 07/07/18 11:29 Est GFR (Non-Af Amer) > 60 07/07/18 11:29 Random Glucose 103 mg/dL (65-105) 07/07/18 11:29 Calcium 8.8 mg/dl (8.6-10.4) 07/07/18 11:29 Total Bilirubin 0.5 mg/dL (0.2-1.3) 07/07/18 11:29 AST 35 U/L (14-36) 07/07/18 11:29 ALT 33 U/L (9-52) 07/07/18 11:29 Alkaline Phosphatase 87 U/L (38-126) 07/07/18 11:29 Total Protein 8.3 g/dL (6.3-8.3) 07/07/18 11:29 Albumin 4.8 g/dL (3.5-5.0) 07/07/18 11:29 Globulin 3.5 gm/dL (2.2-3.9) 07/07/18 11:29 Albumin/Globulin Ratio 1.4 (1.0-2.1) 07/07/18 11:29 Urine HCG, Qual Negative (NEGATIVE) 07/07/18 11:45 Urine Opiates Screen Positive (NEGATIVE) H 07/07/18 11:45 Urine Methadone Screen Negative (NEGATIVE) 07/07/18 11:45 Ur Barbiturates Screen Negative (NEGATIVE) 07/07/18 11:45 Ur Phencyclidine Scrn Negative (NEGATIVE) 07/07/18 11:45 Ur Amphetamines Screen Negative (NEGATIVE) 07/07/18 11:45 U Benzodiazepines Scrn Negative (NEGATIVE) 07/07/18 11:45 U Oth Cocaine Metabols Negative (NEGATIVE) 07/07/18 11:45 U Cannabinoids Screen Negative (NEGATIVE) 07/07/18 11:45 Blood Type B POSITIVE 07/07/18 11:29 Antibody Screen Negative 07/07/18 11:29
--- NOTE | 2018-07-08 01:54 | OP ---
DATE OF SURGERY: 07/07/2018 PREOPERATIVE DIAGNOSIS: Dislocated left elbow joint. POSTOPERATIVE DIAGNOSIS: Dislocated left elbow/left ulnohumeral joint. OPERATIVE FINDINGS: As above. OPERATIVE PROCEDURE: 1. Close reduction of the dislocated left elbow. 2. Application of long-arm posterior splint. 3. Positioning of fluoroscope and interpretation of video images. SURGEON: Rm Mendoza MD SALES SUPERVISOR: Dr. Forbes, podiatry resident. TYPE OF ANESTHESIA: General endotracheal anesthesia. SPECIMENS REMOVED: None. BLOOD LOSS: None. BLOOD PRODUCTS: None. COMPLICATIONS: None. TIME IN THE ROOM: Approximately 1:55 p.m. TIME OF THE PROCEDURE: 14:10. OPERATIVE PROCEDURE: After having obtained informed consent, after thoroughly discussing the pros, cons, risks, and benefits of closed reduction, possible later open reduction, possibility of stiffness, mechanical failure or infection, thromboembolic disease, possibility of secondary or tertiary surgery, the patient was identified as [place] in the supine position with all bony prominences well padded. Under the surgeon's direction, the fluoroscope was positioned. The video images were generated and therapeutic decisions were made there from. After the satisfactory induction of general endotracheal anesthesia with complete muscle relaxation, after having identified the site, side, and procedure and a critical pause/time-out, and after having obtained informed consent, again positioning of fluoroscope was accomplished. The dislocation was noted. At this point in time, with complete muscle relaxation, with the virtual assistant holding the brachium, with downward traction of the flexed elbow, the forearm was distracted and moved forward. The elbow reduced with a palpable reduction. At this point in time, verification of position was offered on image intensification views. The elbow was found to be reduced with no evidence of fracture. A well-padded long-arm posterior splint was applied and the circulatory status was intact. Pulses were intact. Post reduction x-rays revealed acceptable position of the construct. The patient was transferred from the operating table to stretcher having tolerated the procedure well. Rm Mendoza MD
--- NOTE | 2018-07-09 13:11 | RAD ---
Date of service: 07/07/2018 PROCEDURE: Fluoroscopy up to 1 hr HISTORY: DISLOCATED LT. ELBOW COMPARISON: 07/07/2018 TECHNIQUE: 4.7 sec of fluoro time. Cumulative dose 0.07 mGy. Two views were submitted FINDINGS: There has been successful reduction of the elbow dislocation. A bone fragment can be seen adjacent to the radius. IMPRESSION: As above
--- NOTE | 2018-07-09 17:47 | CARD ---
APPROVED REPORT Date of service: 07/07/2018 EKG Measurement Heart [id number] HI [id number] <Conclusion> Sinus rhythm with marked sinus arrhythmia Otherwise normal ECG
== END 2018-07-07 21:10 | disposition home or self-care (01) | DRG 563 ==
LOC: C.ER 08:37 → C.9E 12:12 → C.6T 16:01
PROVIDERS: ADMIT Family Medicine; ATTEND Family Medicine
PROC: 0RSMXZZ Reposition Left Elbow Joint, External Approach (ICD-10-PCS; principal; 2018-07-07 13:30)
DX: S53.125A Posterior dislocation of left ulnohumeral joint, initial encounter (principal); S53.105A Unspecified dislocation of left ulnohumeral joint, initial encounter; W01.0XXA Fall on same level from slipping, tripping and stumbling without subsequent striking against object, initial encounter; M32.9 Systemic lupus erythematosus, unspecified; F17.210 Nicotine dependence, cigarettes, uncomplicated

== ENCOUNTER 2018-12-04 22:11 | Emergency (ER) | payer OTHER ==
[2018-12-04 22:11] VITALS: BMI 19.1
[2018-12-04 22:34] VITALS: RESP 16
[2018-12-04 22:57] LABS: HCG,QUALITATIVE URINE POSITIVE (NEGATIVE)
[2018-12-04 23:03] LABS: SQUAMOUS EPITHIAL 3 /hpf (0-5); URINE BACTERIA RARE (<OCC); URINE BILIRUBIN NEGATIVE (NEGATIVE); URINE BLOOD NEGATIVE (NEGATIVE); URINE CLARITY Hazy (Clear); URINE COLOR Yellow (YELLOW); URINE GLUCOSE (UA) NORMAL (Normal); URINE LEUKOCYTE ESTERASE NEG Leu/uL (Negative); URINE PROTEIN NEGATIVE (NEGATIVE); URINE UROBILINOGEN NORMAL mg/dL (0.2-1.0)
[2018-12-04 23:26] LABS: BASO # 0.1 K/uL (0.0-0.2); BASO % 0.6 % (0.0-2.0); EOS # 0.1 K/uL (0.0-0.7); HEMOGLOBIN 11.7 g/dL (11.0-16.0); LYMPH # 2.8 K/uL (1.0-4.3); MEAN CORPUSCULAR HEMOGLOBIN 33.2 pg (27.0-31.0); MEAN CORPUSCULAR HGB CONC 34.3 g/dL (33.0-37.0); MEAN PLATELET VOLUME 8.5 fL (7.2-11.7); MONO # 1.2 K/uL (0.0-0.8); MONO % 10.8 % (0.0-10.0); NEUT # 6.7 K/uL (1.8-7.0); NEUT % 61.6 % (50.0-75.0); NRBC % 0.2 % (0.0-2.0); RBC 3.51 Mil/uL (3.80-5.20); RED CELL DISTRIBUTION WIDTH 12.2 % (11.5-14.5); WHITE BLOOD COUNT 10.9 K/uL (4.8-10.8)
[2018-12-04 23:38] LABS: ALB/GLOB RATIO 1.3 (1.0-2.1); ALBUMIN 3.9 g/dL (3.5-5.0); ALT/SGPT 36 U/L (9-52); AST/SGOT 25 U/L (14-36); BLOOD UREA NITROGEN 15 mg/dL (7-17); CALCIUM 8.8 mg/dl (8.6-10.4); GFR NON-AFRICAN AMERICAN > 60
--- NOTE | 2018-12-05 00:16 | C.PDOC ---
History Of Present Illness 33 year old female, 7 weeks , presents to the ED c/o lower abdominal discomfort. Patient denies fever, chills, nausea, vomit, diarrhea, dysuria, hematuria, vaginal bleeding, rash. Chief Complaint (Nursing): Abdominal Pain History Per: Patient History/Exam Limitations: no limitations Onset/Duration Of Symptoms: Days Current Symptoms Are (Timing): Still Present Location Of Pain/Discomfort: Suprapubic Associated Symptoms: denies: Nausea, Vomiting, Diarrhea, Urinary Symptoms Recent travel outside of the [place]: No Additional History Per: Patient Abnormal Vaginal Bleeding: No Past Medical History Reviewed: Historical Data, Nursing Documentation, Vital Signs Vital Signs: Last Vital Signs Temp 98.7 F 12/04/18 22:31 Pulse 91 H 12/04/18 22:31 Resp 16 12/04/18 22:31 BP 114/74 12/04/18 22:31 Pulse Ox 98 12/04/18 22:31 Primary Care Provider: Negro Galvez - Medical History PMH: No Chronic Diseases Denies: Chronic Kidney Disease Surgical History: No Surg Hx - [facility] Procedures REPOSITION LEFT ELBOW JOINT, EXTERNAL APPROACH (07/07/18) TETANUS TOXOID ADMINIST (12/22/12) Family History: States: Unknown Family Hx - Social History Hx Tobacco Use: No Hx Alcohol Use: Yes (socially) Hx Substance Use: No - Immunization History Hx Tetanus Toxoid Vaccination: No Hx Influenza Vaccination: No Hx Pneumococcal Vaccination: No Review Of Systems Constitutional: Negative for: Fever, Chills Cardiovascular: Negative for: Chest Pain, Palpitations Respiratory: Negative for: Shortness of Breath Gastrointestinal: Positive for: Abdominal Pain. Negative for: Nausea, Vomiting Genitourinary: Negative for: Dysuria, Vaginal Discharge, Vaginal Bleeding Skin: Negative for: Rash Neurological: Negative for: Weakness, Numbness, Headache Physical Exam - Physical Exam Appears: Non-toxic, No Acute Distress Skin: Normal Color, Warm, Dry Head: Atraumatic, Normacephalic Eye(s): bilateral: Normal Inspection Oral Mucosa: Moist Neck: Normal ROM, Supple Chest: Symmetrical Cardiovascular: Rhythm Regular Respiratory: Normal Breath Sounds, No Rales, No Rhonchi, No Wheezing Gastrointestinal/Abdominal: Soft, Tenderness (mild hypogastric), No Guarding, No Rebound Back: No CVA Tenderness Extremity: Normal ROM, No Tenderness, No Swelling Neurological/Psych: Oriented x3, Normal Speech, Normal Cognition Gait: Steady ED Course And Treatment - Laboratory Results Result Diagrams: 12/04/18 23:23 12/04/18 23:23 Lab Results: Total Bilirubin 0.2 mg/dL (0.2-1.3) 12/04/18 23:23 AST 25 U/L (14-36) 12/04/18 23:23 ALT 36 U/L (9-52) 12/04/18 23:23 Alkaline Phosphatase 69 U/L (38-126) 12/04/18 23:23 Total Protein 6.9 g/dL (6.3-8.3) 12/04/18 23:23 Albumin 3.9 g/dL (3.5-5.0) 12/04/18 23: Globulin 3.0 gm/dL (2.2-3.9) 12/04/18 23:23 Albumin/Globulin Ratio 1.3 (1.0-2.1) 12/04/18 23:23 Urine Color Yellow (YELLOW) 12/04/18 22:53 Urine Clarity Hazy (Clear) 12/04/18 22:53 Urine pH 6.0 (5.0-8.0) 12/04/18 22:53 Ur Specific [place] 1.021 (1.003-1.030) 12/04/18 22:53 Urine Protein Negative mg/dL (NEGATIVE) 12/04/18 22:53 Urine Glucose (UA) Normal mg/dL (Normal) 12/04/18 22:53 Urine Ketones Negative mg/dL (NEGATIVE) 12/04/18 22:53 Urine Blood Negative (NEGATIVE) 12/04/18 22:53 Urine Nitrate Negative (NEGATIVE) 12/04/18 22:53 Urine Bilirubin Negative (NEGATIVE) 12/04/18 22:53 Urine Urobilinogen Normal mg/dL (0.2-1.0) 12/04/18 22:53 Ur Leukocyte Esterase Neg Brianna/uL (Negative) 12/04/18 22:53 Urine WBC (Auto) 2 /hpf (0-5) 12/04/18 22:53 Urine RBC (Auto) 4 /hpf (0-3) H 12/04/18 22:53 Ur Squamous Epith Cells 3 /hpf (0-5) 12/04/18 22:53 Urine Bacteria Rare (<OCC) 12/04/18 22:53 Urine HCG, Qual Positive (NEGATIVE) 12/04/18 22:53 Beta HCG, Quant 6480.10 mIU/ML 12/04/18 23:23 Urine HCG, Qual Positive (NEGATIVE) 12/04/18 22:53 O2 Sat by Pulse Oximetry: 98 (ON RA) Pulse Ox Interpretation: Normal - CT Scan/US Pelvic US Other Rad Studies (CT/US): Read By Radiologist, Radiology Report Reviewed CT/US Interpretation: ultrasound, first trimester. Indication: Lower abdominal pain. Technique: Real-time ultrasound images were obtained. Find ings: Single, live intrauterine gestation. Estimated gestational age 7 weeks and 4 days. heart rate of 86 beats per minute. Normal right ovary. Hypoechoic left ovarian cyst measuring 1.2 cm. Probably complex corpus luteum cyst. Prominent blood vessels of the left adnexa. Impression: Single, live intrauterine gestation. bradycardia. Hypoechoic left ovarian corpus luteum cyst. . Electronically signed on December 05, 2018 3:05:32 AM EDT by: Darcy Venegas M.D., Certified by ABR, MSK, Neuroradiology Medical Decision Making Medical Decision Making: Plan: * Labs * UA * Urine culture * Pelvic US Disposition Counseled Patient/Family Regarding: Diagnosis - Disposition Referrals: [facility] [Outside] Disposition: HOME/ ROUTINE Disposition Time: 03:16 Condition: STABLE Instructions: Threatened Miscarriage Forms: [facility] (Persian) - POA Present On Arrival: None - Clinical Impression Clinical Impression: bradycardia - Scribe Statement The provider has reviewed the documentation as recorded by the Scribe Ramon Arredondo All medical record entries made by the Scribe were at my direction and personally dictated by me. I have reviewed the chart and agree that the record accurately reflects my personal performance of the history, physical exam, medical decision making, and the department course for this patient. I have also personally directed, reviewed, and agree with the discharge instructions and disposition.
[2018-12-05 03:31] VITALS: BP 126/82; PULSE 112; TEMP 97.8; O2SAT 96
--- NOTE | 2018-12-05 12:34 | US ---
Date of service: 12/05/2018 PROCEDURE: First trimester ultrasound HISTORY: ower abd pain COMPARISON: None TECHNIQUE: Standard protocol for this study/examination. FINDINGS: LMP: 10/10/2018 Prior examinations from the current : None TECHNIQUE: Real-time 2D imaging, duplex and color Doppler. FINDINGS: Cardiac activity: Present Rate: 87 BPM Measurements: [place] rump length: 1.35 cm Gestational age based on CRL 7 weeks 4 days Gestational age 5 weeks 3 days based on gestational sac measurement 1.28 cm Gestational age derived from LMP: 7 weeks 6 days OPHELIA based on LMP: 07/17/2019 OPHELIA based on biometry: 07/27/2019 Gestational concordance noted Yolk sac identified Cervix: No Cervical abnormalities: Negative examination for cervical dilatation or effacement. Closed cervix measuring 3.05 cm Subchorionic hemorrhage: None UTERUS: 3.9 x 4.7 x 7.6 cm. ADNEXA: Right: 1.9 x 2.2 x 3.5 cm. Normal Doppler arterial waveform documented. Left: 1.4 x 2.6 x 2.6 cm. Likely hemorrhagic/corpus luteum cyst 1.2 x 1 x 0.9. Normal Doppler arterial waveform documented Fluid in the cul-de-sac: IMPRESSION: Single live intrauterine gestation. bradycardia noted. Likely corpus luteum cyst left adnexa. Concordant findings (preliminary report) provided by [facility].
== END 2018-12-05 03:36 | disposition home or self-care (01) ==
LOC: C.ER 22:11
DX: O76 Abnormality in fetal heart rate and rhythm complicating labor and delivery (principal); Z3A.01 Less than 8 weeks gestation of pregnancy